=== PATIENT | female | born 1970 | race Hispanic/Latino ===

== ENCOUNTER 2018-03-29 16:02 | Emergency (ER) | payer OTHER ==
[2018-03-29 16:36] LABS: BASOPHILS % (AUTO) 0.5 % (0.0-5.0); EOSINOPHILS % (AUTO) 0.2 % (0.0-8.0); HEMATOCRIT 30.8 % (36-48); LYMPHOCYTES % (AUTO) 24.8 % (21.0-51.0); MEAN CORPUSCULAR HGB CONC 33.3 g/dL (32.0-36.0); MEAN CORPUSCULAR VOLUME 77.9 fL (79-99); MONOCYTES % (AUTO) 5.7 % (3.0-13.0); NEUTROPHILS % (AUTO) 68.8 % (40.0-77.0); PLATELET COUNT (AUTO) 288 K/uL (130-400); RED BLOOD CELL COUNT(AUTO) 3.95 MIL/uL (4.00-5.50); RED CELL DISTRIBUTION WIDTH 14.4 % (11.0-15.5); WHITE BLOOD COUNT (AUTO) 10.7 K/uL (4.8-10.8)
[2018-03-29 16:43] LABS: CREATININE 0.7 mg/dL (0.5-1.5); POTASSIUM 3.5 mmol/L (3.5-5.1)
[2018-03-29 16:50] LABS: ALBUMIN 3.4 g/dL (3.5-5.0); BILIRUBIN,TOTAL 0.2 mg/dL (0.2-1.0); TOTAL PROTEIN, SERUM 7.1 g/dL (6.0-8.3)
[2018-03-29 16:54] LABS: APPEARANCE,URINE Cloudy (CLEAR); BILIRUBIN,URINE Negative (NEGATIVE); COLOR,URINE Yellow (YELLOW); GLUCOSE, URINE (UA) Negative (NEGATIVE); KETONES,URINE Trace mg/dL (NEGATIVE); LEUKOCYTE ESTERASE ,URINE Moderate (NEGATIVE); NITRATE,URINE Negative (NEGATIVE); OCCULT BLOOD,URINE Large (NEGATIVE); PROTEIN,URINE POS 1+ (NEGATIVE)
[2018-03-29] MEDS ORDERED: KETOROLAC TROMETHAMINE 30MG/ML ONE (16:54)
[2018-03-29 17:05] LABS: BACTERIA,URINE Few /HPF (None Seen); MUCUS,URINE Moderate LPF (None Seen); TRANSITIONAL EPI CELLS,URINE Moderate /HPF (None Seen)
[2018-03-29] MEDS ORDERED: ONDANSETRON HCL MDV 20ML 2 MG/ML VIAL ONE (17:43)
[2018-03-29] MEDS ORDERED: MORPHINE SULFATE 4 MG/1ML SYG ONE (17:43)
[2018-03-29] MEDS ORDERED: BISACODYL 5 MG TABLET.DR PO ONE (18:50)
[2018-03-29] MEDS ORDERED: MAGNESIUM CITRATE 296 ML SOLUTION ONE (18:50)
[2018-03-29] MEDS ORDERED: BISACODYL 10 MG SUPP.RECT RC ONE (18:52)
== END 2018-03-29 20:36 | disposition home or self-care (01) ==
LOC: EDH 16:02
DX: R10.9 Unspecified abdominal pain (principal); M54.9 Dorsalgia, unspecified; Z88.0 Allergy status to penicillin; Z87.442 Personal history of urinary calculi
CPT/HCPCS: 36415; 71045; 74018; 76700; 80053; 81001; 83690; 84484 ×2; 85025; 93005; 96374; 96375; 99285; J1885; J2270

== ENCOUNTER 2018-09-25 18:40 | Emergency (ER) | payer OTHER ==
[2018-09-25] MEDS ORDERED: DIAZEPAM 5 MG TABLET ONE (19:30)
[2018-09-25] MEDS ORDERED: KETOROLAC TROMETHAMINE 60 MG/2 ML VIAL ONE (19:30)
== END 2018-09-25 20:42 | disposition home or self-care (01) ==
LOC: EDH 18:40
DX: M54.5 Low back pain (principal); Z88.0 Allergy status to penicillin; Z87.442 Personal history of urinary calculi
CPT/HCPCS: 96372; 99283; J1885

== ENCOUNTER 2019-03-21 19:29 | Emergency (ER) | payer OTHER ==
[2019-03-21] MEDS ORDERED: FAMOTIDINE/PF 20 MG/2 ML VIAL IV ONE (20:13)
[2019-03-21] MEDS ORDERED: DICYCLOMINE HCL 10 MG/ML 2ML AMP IM ONE (20:13)
[2019-03-21] MEDS ORDERED: ONDANSETRON HCL 4 MG/2 ML VIAL ONE (20:13)
[2019-03-21 20:34] LABS: CREATININE 0.6 mg/dL (0.5-1.5); POTASSIUM 3.8 mmol/L (3.5-5.1)
[2019-03-21 20:41] LABS: ALBUMIN 3.3 g/dL (3.5-5.0); BILIRUBIN,TOTAL 0.2 mg/dL (0.2-1.0); TOTAL PROTEIN, SERUM 7.1 g/dL (6.0-8.3)
[2019-03-21 20:43] LABS: BASOPHILS % (AUTO) 0.3 % (0.0-5.0); EOSINOPHILS % (AUTO) 0.2 % (0.0-8.0); HEMATOCRIT 27.2 % (36-48); LYMPHOCYTES % (AUTO) 32.6 % (21.0-51.0); MEAN CORPUSCULAR HEMOGLOBIN 19.3 pg (27.0-33.0); MEAN CORPUSCULAR HGB CONC 30.2 g/dL (32.0-36.0); MONOCYTES % (AUTO) 5.4 % (3.0-13.0); NEUTROPHILS % (AUTO) 61.5 % (40.0-77.0); PLATELET COUNT (AUTO) 368 K/uL (130-400); RED BLOOD CELL COUNT(AUTO) 4.25 MIL/uL (4.00-5.50); RED CELL DISTRIBUTION WIDTH 18.7 % (11.0-15.5); WHITE BLOOD COUNT (AUTO) 7.8 K/uL (4.8-10.8)
== END 2019-03-21 21:02 | disposition home or self-care (01) ==
LOC: EDH 19:29
DX: R10.13 Epigastric pain (principal); R19.7 Diarrhea, unspecified; R11.2 Nausea with vomiting, unspecified; Z88.0 Allergy status to penicillin; Z87.442 Personal history of urinary calculi
CPT/HCPCS: 36415; 80053; 83690; 85025; 96365; 96372; 96375; 99284; J0500; J2405; J3490

== ENCOUNTER 2019-12-18 11:56 | Emergency (ER) | payer OTHER ==
[2019-12-18 12:20] LABS: APPEARANCE,URINE Cloudy (CLEAR); BILIRUBIN,URINE Negative (NEGATIVE); COLOR,URINE Dark Yellow (YELLOW); GLUCOSE, URINE (UA) Negative (NEGATIVE); KETONES,URINE Negative (NEGATIVE); LEUKOCYTE ESTERASE ,URINE Negative (NEGATIVE); NITRATE,URINE Negative (NEGATIVE); OCCULT BLOOD,URINE Negative (NEGATIVE); PH,URINE 5.5 (5.0-8.0); PROTEIN,URINE Trace mg/dL (NEGATIVE)
[2019-12-18 12:36] LABS: BACTERIA,URINE Rare /HPF (None Seen); MUCUS,URINE Moderate LPF (None Seen); RBC,URINE None Seen /HPF (0-1); WBC,URINE None Seen /HPF (0-1)
[2019-12-18] MEDS ORDERED: ONDANSETRON HCL 4 MG/2 ML VIAL ONE (12:37)
[2019-12-18] MEDS ORDERED: FENTANYL CITRATE PF 50 MCG/1 ML 2ML VIAL ONE (12:38)
[2019-12-18 12:44] LABS: BASOPHILS % (AUTO) 0.1 % (0.0-5.0); EOSINOPHILS % (AUTO) 0.1 % (0.0-8.0); HEMATOCRIT 37.2 % (36-48); LYMPHOCYTES % (AUTO) 16.8 % (21.0-51.0); MEAN CORPUSCULAR HEMOGLOBIN 20.8 pg (27.0-33.0); MEAN CORPUSCULAR VOLUME 71.5 fL (79-99); MONOCYTES % (AUTO) 4.5 % (3.0-13.0); NEUTROPHILS % (AUTO) 78.3 % (40.0-77.0); PLATELET COUNT (AUTO) 335 K/uL (130-400); RED CELL DISTRIBUTION WIDTH 16.7 % (11.0-15.5); WHITE BLOOD COUNT (AUTO) 10.1 K/uL (4.8-10.8)
[2019-12-18 13:08] LABS: AMYLASE 58 U/L (25-115); LIPASE 134 U/L (114-286)
[2019-12-18 13:12] LABS: BILIRUBIN,TOTAL 0.4 mg/dL (0.2-1.0); CREATININE 0.7 mg/dL (0.5-1.5); POTASSIUM 3.6 mmol/L (3.5-5.1); TOTAL PROTEIN, SERUM 8.6 g/dL (6.0-8.3)
[2019-12-18] MEDS ORDERED: KETOROLAC TROMETHAMINE 30MG/ML ONE (14:13)
[2019-12-18] MEDS ORDERED: SODIUM CHLORIDE 0.9% 500ML 500 ML IV ONE (14:14)
[2019-12-18] MEDS ORDERED: CEFTRIAXONE SODIUM 1 GM ONE (14:20)
== END 2019-12-18 16:50 | disposition home or self-care (01) ==
LOC: EDH 11:56
DX: R10.9 Unspecified abdominal pain (principal); Z88.0 Allergy status to penicillin
CPT/HCPCS: 36415; 71046; 76770; 80053; 81001; 81025; 82150; 83690; 85025; 96374; 96375; 99285; J0696; J1885; J2405; J3010; J7040

== ENCOUNTER 2020-03-24 15:17 | Emergency (ER) | payer OTHER ==
[2020-03-24 15:59] LABS: APPEARANCE,URINE Cloudy (CLEAR); BILIRUBIN,URINE Negative (NEGATIVE); COLOR,URINE Yellow (YELLOW); GLUCOSE, URINE (UA) Negative (NEGATIVE); KETONES,URINE Negative (NEGATIVE); LEUKOCYTE ESTERASE ,URINE Negative (NEGATIVE); NITRATE,URINE Negative (NEGATIVE); OCCULT BLOOD,URINE Negative (NEGATIVE); PH,URINE 5.5 (5.0-8.0); PROTEIN,URINE Negative (NEGATIVE)
[2020-03-24 16:19] LABS: BACTERIA,URINE Few /HPF (None Seen); SQUAMOUS EPITHELIAL CELL,UR Many /HPF (0-2)
[2020-03-24 16:56] LABS: BASOPHILS % (AUTO) 0.1 % (0.0-5.0); EOSINOPHILS % (AUTO) 0.2 % (0.0-8.0); HEMATOCRIT 31.9 % (36-48); LYMPHOCYTES % (AUTO) 19.4 % (21.0-51.0); MEAN CORPUSCULAR HEMOGLOBIN 20.9 pg (27.0-33.0); MEAN CORPUSCULAR HGB CONC 29.5 g/dL (32.0-36.0); MEAN CORPUSCULAR VOLUME 70.9 fL (79-99); MONOCYTES % (AUTO) 8.4 % (3.0-13.0); NEUTROPHILS % (AUTO) 71.7 % (40.0-77.0); PLATELET COUNT (AUTO) 257 K/uL (130-400); RED CELL DISTRIBUTION WIDTH 16.5 % (11.0-15.5)
[2020-03-24] MEDS ORDERED: CEFTRIAXONE SODIUM 2 GM VIAL ONE (17:02)
[2020-03-24] MEDS ORDERED: FAMOTIDINE/PF 20 MG/2 ML VIAL IV ONE (17:05)
[2020-03-24] MEDS ORDERED: ONDANSETRON HCL 4 MG/2 ML VIAL ONE (17:05)
[2020-03-24 17:09] LABS: CARBON DIOXIDE 27 mmol/L (21-32); CHLORIDE 102 mmol/L (101-111); CREATININE 0.7 mg/dL (0.5-1.5); GLOMERULAR FILTR. RATE CALC 95 mL/min (>60); GLUCOSE,RANDOM 96 mg/dL (70-105); INR 1.01 (0.85-1.15); PARTIAL THROMBOPLASTIN TIME 26.7 SEC (26.3-35.5); PROTHROMBIN TIME 10.9 SEC (9.6-11.6); SODIUM SERUM 136 mmol/L (136-145); UREA NITROGEN, BLOOD 8 mg/dL (7-18)
[2020-03-24 17:20] LABS: ALANINE AMINOTRANSFERASE 36 U/L (12-78); ALBUMIN 3.4 g/dL (3.5-5.0); ASPARTATE AMINOTRANSFERASE 34 U/L (10-37); BILIRUBIN,TOTAL 0.3 mg/dL (0.2-1.0); CREATINE KINASE, TOTAL 13 U/L (21-232); MYOGLOBIN 20 ng/mL (10-92); TOTAL PROTEIN, SERUM 7.2 g/dL (6.0-8.3); TROPONIN I < 0.04 ng/mL (0.00-0.06)
[2020-03-24] MEDS ORDERED: ONDANSETRON ODT 4 MG TAB ONE (18:45)
== END 2020-03-24 19:00 | disposition home or self-care (01) ==
LOC: EDH 15:17
DX: B34.9 Viral infection, unspecified (principal); R11.2 Nausea with vomiting, unspecified; R50.9 Fever, unspecified; Z88.0 Allergy status to penicillin; Z91.041 Radiographic dye allergy status
CPT/HCPCS: 36415; 71045; 80053; 81001; 82550; 83605; 83690; 83874; 84145; 84484; 85025; 85610; 85730; 87040 ×2; 87088; 87804 ×2; 93005; 96374; 96375; 99285; J0696; J2405; J3490

== ENCOUNTER → 2020-07-17 | Outpatient (CLI) | payer OTHER | END | disposition home or self-care (01) | LOC: RAH 08:48 | PROVIDERS: ATTEND Obstetrics & Gynecology | DX: Z12.31 Encounter for screening mammogram for malignant neoplasm of breast (principal) | CPT/HCPCS: 77067 ==

== ENCOUNTER 2022-05-20 17:47 | Emergency (ER) | payer BC, OTHER ==
[~2022-05-20] VITALS: Ht 162.6 cm; Wt 93.0 kg
[2022-05-20] MEDS ORDERED: DiphenhydrAMINE HCL 50 MG/ML VIAL IV ONE (18:00)
[2022-05-20] MEDS ORDERED: FAMOTIDINE 20MG VIAL IV ONE (18:00)
[2022-05-20] MEDS ORDERED: SOLU-MEDROL 125MG VIAL IVP ONE (18:00)
[2022-05-20] MEDS ORDERED: FAMO-136 PO (18:49)
[2022-05-20] MEDS ORDERED: CETI1SOL17 PO (18:49)
[2022-05-20] MEDS ORDERED: PRED20TA3 PO (18:49)
[2022-05-20 19:00] VITALS: BP 133/79
== END 2022-05-20 19:11 | disposition home or self-care (01) ==
LOC: EDH 17:47
DX: L50.9 Urticaria, unspecified (principal); E11.9 Type 2 diabetes mellitus without complications; G43.909 Migraine, unspecified, not intractable, without status migrainosus; E66.9 Obesity, unspecified; Z68.35 Body mass index [BMI] 35.0-35.9, adult; Z88.8 Allergy status to other drugs, medicaments and biological substances; Z88.0 Allergy status to penicillin; Z87.442 Personal history of urinary calculi
CPT/HCPCS: 99284; 96374; 96375; 82948; J1200; J3490; J2930

== ENCOUNTER 2024-10-10 15:27 | Inpatient (IN) | payer BC ==
[~2024-10-10] VITALS: Ht 162.6 cm; Wt 88.0 kg
[~2024-10-10 15:27] MED LIST: CETI1SOL17 PO; FAMO-136 PO; PRED20TA3 PO
[2024-10-10 15:56] LABS: BASOPHILS # (AUTO) 0.02 K/uL (0.00-0.20); BASOPHILS % (AUTO) 0.2 % (0.0-5.0); EOSINOPHILS # (AUTO) 0.03 K/uL (0.00-0.70); EOSINOPHILS % (AUTO) 0.2 % (0.0-8.0); HEMATOCRIT 48.1 % (36-48); IMMATURE GRANULOCYTE ABSOLUTE 0.04 K/uL (0-1); LYMPHOCYTES # (AUTO) 1.4 K/uL (1.0-4.8); LYMPHOCYTES % (AUTO) 10.8 % (21.0-51.0); MEAN CORPUSCULAR HEMOGLOBIN 30.3 pg (27.0-33.0); MEAN CORPUSCULAR HGB CONC 33.7 g/dL (32.0-36.0); MEAN CORPUSCULAR VOLUME 90.1 fL (79-99); MONOCYTES # (AUTO) 0.7 K/uL (0.1-1.0); MONOCYTES % (AUTO) 5.4 % (3.0-13.0); NEUTROPHILS # (AUTO) 10.8 K/uL (1.8-7.7); NEUTROPHILS % (AUTO) 83.1 % (40.0-77.0); PLATELET COUNT (AUTO) 270 K/uL (130-400); RED BLOOD CELL COUNT(AUTO) 5.34 MIL/uL (4.00-5.50); RED CELL DISTRIBUTION WIDTH 13.5 % (11.0-15.5)
[2024-10-10 16:06] LABS: INR 0.98 (0.85-1.15)
[2024-10-10 16:08] LABS: PARTIAL THROMBOPLASTIN TIME 31.8 SEC (26.3-35.5)
[2024-10-10 16:20] LABS: ALBUMIN 3.8 g/dL (3.5-5.0); BILIRUBIN,DIRECT 0.2 mg/dL (0.0-0.3); CREATININE 0.8 mg/dL (0.5-1.0); POTASSIUM 3.9 mmol/L (3.5-5.1); TOTAL PROTEIN, SERUM 7.8 g/dL (6.0-8.3)
--- NOTE | 2024-10-10 16:28 | HMCIMG ---
Exam Type: CT ABDOMEN/PELVIS W/O CONTRAST Clinical Information: Abdominal pain Comparison: None CT Dose Index (CTDI): 10.20 mGy Dose Length Product (DLP): 530.00 total mGy-cm PROTOCOL: Routine noncontrast helical scanning of the abdomen and pelvis was performed at 5mm collimation. Findings: No evidence of nephro or ureterolithiasis is found. No hydronephrosis or ureteral dilatation is seen. The lung bases are clear. The stomach is unremarkable. It shows no wall thickening. No gross ulceration is seen. It is not overly distended. There are no surrounding inflammatory changes. No wall lesions are identified to suggest cancer. The spleen is unremarkable. It is not enlarged. The pancreas shows normal anatomy. It is not fatty replaced. It shows no lesions. The pancreatic duct is not dilated. The gallbladder is unremarkable. It shows no cholelithiasis. The gallbladder wall is normal in thickness. There is no pericholecystic fluid. The is no acute or chronic inflammation noted. The adrenal glands are unremarkable. There is no enlargement. No lesions are noted. The liver is unremarkable. It shows no focal masses. The appendix is unremarkable. It shows no evidence of inflammation. No appendicolith is seen. Dilatation of the jejunum with small caliber of the ileum and these findings are consistent with jejunoileal level obstruction. The colon is unremarkable. The urinary bladder is unremarkable. There is no wall thickening to suggest tumor or inflammation. There are no intraluminal calculi. There are no diverticula. There is no evidence of chronic bladder outlet obstruction. There is no evidence of urinary bladder distention to suggest urinary retention. The other pelvic structures are unremarkable. The bony and vascular structures are unremarkable for the patient's age. IMPRESSION: Small bowel obstruction. This study was performed using dose reduction techniques to include automated exposure control and/or adjustment of the mA and/or kV according to patient size.
[2024-10-10] MEDS: ondanSETRON 4MG INJ IVP ONE (16:59)
[2024-10-10] MEDS: morPHINE 2 MG SYG IVP ONE (16:59)
[2024-10-10] MEDS: FAMOTIDINE 20MG VIAL IV ONE (16:59)
--- NOTE | 2024-10-10 17:07 | EKG ---
[facility] [place] Test Date: 2024-10-10 Test Time: 17:00:47 Pat Name: EVA BUENROSTRO Department: ED Room: 413 Gender: F Adolescent Counselor: [id number] : 1970 Requested By: MOR LOWERY Order Number: [id number] Reading MD: Dayne Petersen Measurements Intervals [place] Rate: 124 P: 31 SC: 140 QRS: 29 QRSD: 73 T: 43 QT: 334 QTc: 480 Interpretive Statements Sinus tachycardia Compared to ECG 03/24/2020 15:56:00 No significant changes Electronically Signed On 10-11-2024 21:12:48 [employer] by Dayne Petersen Please click the below link to view image of tracing.
--- NOTE | 2024-10-10 18:00 | ERN ---
General Chief Complaint: Abdominal Pain Stated Complaint: ABDOMINAL PAIN Time Seen by MD: 15:29 History of Present Illness Initial Comments 54-year-old female came in for nausea and vomiting abdominal pain for the past couple of days. Patient says that her belly feels distended. Patient otherwise has no concerns. Allergies: Coded Allergies: Iodine and Iodide Containing Produc (Unverified Allergy, Unknown, 03/24/20) Penicillins (Unverified Allergy, Unknown, 03/21/19) Home Meds Active Scripts Cetirizine HCl (Zyrtec Syrup 1 mg/1 ml) 1 Mg/1 Ml Solution, 10 MG PO BID for 5 Days, #120 ML Prov:VARUN CONN 05/20/22 Famotidine (Pepcid) 20 Mg Tablet, 20 MG PO BID for 15 Days, #30 TAB Prov:VARUN CONN 05/20/22 Prednisone (Prednisone) 20 Mg Tablet, 2 TAB PO AD for 5 Days, #10 TAB 0 Refills TAKE 1 TAB BY MOUTH THREE TIMES PER DAY X3 DAYS, THEN TAKE 1 TAB BY MOUTH TWICE A DAY X2 DAYS, THEN TAKE 1 TAB BY MOUTH ONCE A DAY X1 DAY. Prov:VARUN CONN 05/20/22 Past Medical History Past Medical History: No Pertinent History Medical History Other: Obesity Past Surgical History: None Family History Family History: Negative Social History Social History: Negative ROS Dictation CONSTITUTIONAL: Negative except for HPI HEAD/FACE: Negative except for HPI EENT: Negative except for HPI RESPIRATORY: Negative except for HPI GASTROINTESTINAL/ABDOMINAL: Negative except for HPI GENITOURINARY: Negative except for HPI MUSCULOSKELETAL: Negative except for HPI INTEGUMENTARY: Negative except for HPI NEUROLOGICAL/PSYCH: Negative except for HPI HEMATOLOGIC/LYMPHATIC: Negative except for HPI All Systems Negative, Except as noted above. 13 point review of systems assessed and all negative except for above. Physical Exam Physical Exam Dictation Vital Signs reviewed General Appearance: Alert, oriented x 3, no acute distress, well developed, nourished. Head and Face: non-traumatic. Eyes: PERRL, pink conjunctivas, eyelid no trauma, anterior chamber with arcus senilis. Ears: Pinnas intact and no signs of trauma or erythema ear canals clear and no discharge TM no erythema Nose: No discharge, no bleeding. Oropharynx: Mouth normal, tongue pink, pharynx clear,no erythema, tonsils no exudates, no abscesses noted, mucous membrane moist Neck: Supple, non-tender, no thyromegaly, no masses, no JVD, no bruits Breast:Deferred Chest:No tenderness, no crepitus, no paradoxical movement, no retractions Lungs:Clear, well-ventilated, symmetric, no rales, no wheezing, no rhonchi, no stridor, good breath sounds bilaterally Heart: Regular rate, regular rhythm, no murmur, no gallops Vascular: no peripheral edema, Abdomen: Soft, positive bowel sounds, nondistended, no guarding, nontender, no rebound, no masses no hepatomegaly, no splenomegaly, no Turpin's sign, no hernias. Rectal: Deferred Genital: Deferred Neurological: Normal speech, motor function intact, sensory function intact Musculoskeletal: Neck nontender, full range of motion, back nontender, full range of motion, Extremities: nontender, full range of motion Skin: Color pink, dry, no turgor, no rash, no lacerations, no abrasions, no contusions. Lymphatic: Deferred Results Laboratory and Microbiology Lab and Micro Result Laboratory Tests Test 10/10/24 15:50 White Blood Count 13.0 K/uL (4.8-10.8) H Red Blood Count 5.34 MIL/uL (4.00-5.50) Hemoglobin 16.2 g/dL (12.0-16.0) H Hematocrit 48.1 % (36-48) H Mean Corpuscular Volume 90.1 fL (79-99) Mean Corpuscular Hemoglobin 30.3 pg (27.0-33.0) Mean Corpuscular Hemoglobin Concent 33.7 g/dL (32.0-36.0) Red Cell Distribution Width 13.5 % (11.0-15.5) Platelet Count 270 K/uL (130-400) Mean Platelet Volume 10.0 fL (7.5-10.5) Immature Granulocyte % (Auto) 0.3 % (0-1) Neutrophils (%) (Auto) 83.1 % (40.0-77.0) H Lymphocytes (%) (Auto) 10.8 % (21.0-51.0) L Monocytes (%) (Auto) 5.4 % (3.0-13.0) Eosinophils (%) (Auto) 0.2 % (0.0-8.0) Basophils (%) (Auto) 0.2 % (0.0-5.0) Neutrophils # (Auto) 10.8 K/uL (1.8-7.7) H Lymphocytes # (Auto) 1.4 K/uL (1.0-4.8) Monocytes # (Auto) 0.7 K/uL (0.1-1.0) Eosinophils # (Auto) 0.03 K/uL (0.00-0.70) Basophils # (Auto) 0.02 K/uL (0.00-0.20) Absolute Immature Granulocyte (auto 0.04 K/uL (0-1) Nucleated Red Blood Cells 0.0 % (0.0-0.19) Prothrombin Time 11.0 SEC (9.6-11.6) Prothromb Time International Ratio 0.98 (0.85-1.15) Activated Partial Thromboplast Time 31.8 SEC (26.3-35.5) Sodium Level 144 mmol/L (136-145) Potassium Level 3.9 mmol/L (3.5-5.1) Chloride Level 106 mmol/L (101-111) Carbon Dioxide Level 31 mmol/L (21-32) Blood Urea Nitrogen 15 mg/dL (7-18) Creatinine 0.8 mg/dL (0.5-1.0) Glomerular Filtration Rate Calc 88 mL/min (>90) Random Glucose 109 mg/dL (70-105) H Lactic Acid Level 1.3 mmol/L (0.8-2.5) Total Calcium 9.1 mg/dL (8.5-10.1) Total Bilirubin 1.0 mg/dL (0.2-1.0) Direct Bilirubin 0.2 mg/dL (0.0-0.3) Aspartate Amino Transf (AST/SGOT) 28 U/L (10-37) Alanine Aminotransferase (ALT/SGPT) 36 U/L (12-78) Alkaline Phosphatase 145 U/L (50-136) H Troponin I High Sensitivity < 4 ng/L (4-50) L Total Protein 7.8 g/dL (6.0-8.3) Albumin 3.8 g/dL (3.5-5.0) Lipase 27 U/L (16-77) Procalcitonin < 0.05 ng/mL (0.05-0.5) L MDM MDM: Differential diagnosis: Rationale: Tests considered and ordered secondary to shared decision making include: Previous outside records reviewed: Old ER visits. Risk of complication and/or morbidity or mortality of patient management: None Medications-Per medication reconciliation Need for hospitalization: Patient does meet criteria for hospitalization. Need for emergency major/minor surgery: No There are no social concerns with this patient. Prescription drug management Prescriptions will include symptomatic care Patient's prior external medical records from other ER visits were reviewed by me as indicated. Prior testing and results from previous visits were reviewed. Prior tests were taken into account with medical decision making and resource utilization, independent historian/historians were used to obtain complete medical history. I independently interpreted the test that were performed, results were reviewed by me and considered findings on radiology if ordered. Medical management and examination interpretation discussions were had by me with other qualified healthcare professionals as indicated for the patient's care. ED Course Orders Procedure Category Date Status Time 12 Lead Ekg Tracing- EKG 10/10/24 Complete Technical 15:37 Cbc With Differential LAB 10/10/24 Complete 15:37 Basic Metabolic Panel LAB 10/10/24 Complete 15:37 Hepatic Function Panel LAB 10/10/24 Complete 15:37 Lactic Acid LAB 10/10/24 Complete 15:37 Lipase LAB 10/10/24 Complete 15:37 Procalcitonin LAB 10/10/24 Complete 15:37 Pt And Ptt LAB 10/10/24 Complete 15:37 Troponin I High LAB 10/10/24 Complete Sensitivity 15:37 Urinalysis LAB 10/10/24 Logged W/Microscopic 15:37 Ct Abdomen/Pelvis W/O CT 10/10/24 Resulted Contrast 15:37 Morphine 2mg Syg PHA 10/10/24 Complete (Morphine 2mg Syg) 16:00 Famotidine 20mg Vial PHA 10/10/24 Complete (Pepcid 20mg Vial) 16:00 Ondansetron 4mg Inj PHA 10/10/24 Complete (Zofran 4mg Inj) 16:00 Current Medications Medications (Trade) Dose Ordered Sig/Wendy Route PRN Reason Start Time Stop Time Status Last Admin Dose Admin Famotidine (Pepcid 20mg Vial) 20 mg ONCE ONCE IV 10/10/24 16:00 10/10/24 16:01 DC 10/10/24 16:59 Morphine Sulfate (morPHINE 2MG SYG) 2 mg ONCE ONCE IVP 10/10/24 16:00 10/10/24 16:01 DC 10/10/24 16:59 Ondansetron HCl (zoFRAN 4MG INJ) 4 mg ONCE ONCE IVP 10/10/24 16:00 10/10/24 16:01 DC 10/10/24 16:59 Vital Signs Date Time Temp Pulse Resp B/P (MAP) Pulse Ox O2 Delivery O2 Flow Rate FiO2 10/10/24 18:05 98.2 105 16 132/74 99 Room Air* 0 10/10/24 17:00 98.2 117 16 135/92 98 Room Air* 0 10/10/24 15:35 98.6 107 18 144/99 97 Room Air* 0 10/10/24 15:32 98.6 107 18 144/99 97 0 DX & DISP Disposition: Inpatient Departure Impression: Primary Impression: Small bowel obstruction Condition: Stable Referrals: SUSANNE DEL ROSARIO (PCP) MOR LOWERY MD Oct 10, 2024 18:00
--- NOTE | 2024-10-10 18:13 | HP ---
History of Present Illness Reason for Visit: nv History of Present Illness Ms. Holcomb is a 54-year-old female that was seen and examined today on 10/10/2024. Patient's mother Charlee Holcomb is at bedside. Patient states that she came to the emergency department with a chief complaint of abdominal pain. Onset was 10/09/2024 at 4:00 p.m.. Location is epigastric. Duration is constant. There was no alleviating factors. Symptoms are aggravated with eating and drinking. Patient reports associated nausea and vomiting x5 episodes. Today in the emergency department WBCs 13.0, left shift neutrophils 83.1%, chemistry unremarkable, no urinalysis has been collected or sent to lab. CT of abdomen and pelvis shows small bowel obstruction. Emergency room physician recommended patient be admitted with a diagnosis of small-bowel obstruction. Past Medical History ADDITIONAL PAST MEDICAL HISTORY: [Denies] SOCIAL HISTORY: [Negative for smoking, alcohol use, drug use. Patient lives with the mother Charlee Wallace. Patient is typically independent of all her ADLs. 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 Patient has good access to health care through her insurance. Patient denies difficulty paying her bills.] SURGICAL HISTORY: [Denies] Review of Systems General: No Fever, No Chills, No Night Sweats, No Fatigue, No Malaise, No Appetite, No Other HEENT: No Head Aches, No Visual Changes, No Eye Pain, No Ear Pain, No Dysphasia, No Sinus Congestion, No Post Nasal Drip, No Sore Throat, No Other Pulmonary: No Dyspnea, No Cough, No Pleuritic Chest Pain, No Other Cardiovascular: No: Chest Pain, Palpitations, Orthopnea, Paroxysmal Noc. Dyspnea, Edema, Lt Headedness, Other Gastrointestinal: Nausea, Vomiting, Abdominal Pain; No: Diarrhea, Constipation, Melena, Hematochezia, Other Genitourinary: No Dysuria, No Frequency, No Incontinence, No Hematuria, No Retention, No Other Musculoskeletal: No: other, neck pain, shoulder pain, arm pain, back pain, hand pain, leg pain, foot pain Skin: No Urticaria, No Rash, No Other Neurological: No: Weakness, Numbness, Incoordination, Change in speech, Confusion, Seizures, Other Allergies: Coded Allergies: Iodine and Iodide Containing Produc (Unverified Allergy, Unknown, 03/24/20) Penicillins (Unverified Allergy, Unknown, 03/21/19) Discontinued Medications Cetirizine HCl (Zyrtec Syrup 1 mg/1 ml), 10 MG PO BID Famotidine (Pepcid), 20 MG PO BID Prednisone (Prednisone), 2 TAB PO AD Exam Vital Signs Vital Signs Date Time Temp Pulse Resp B/P (MAP) Pulse Ox O2 Delivery O2 Flow Rate FiO2 10/10/24 18:05 98.2 105 16 132/74 99 Room Air* 0 21 General Appearance: Alert, Oriented X3, Cooperative, No acute distress HEENT: Atraumatic, EOMI, Mucous membr. moist/pink Respiratory: Clear to auscultation, Normal air movement, NL respiratory effort Cardiovascular: Regular rate, Regular rhythm, Normal S1, Normal S2 Abdominal: Normal bowel sounds, Soft Extremities: No edema Skin: No significant lesion Neuro: Normal speech, Strength at 5/5 X4 ext, Sensation intact, Cranial nerves 3-12 NL Psych/Mental Status: Mental status NL, Mood NL, Thoughts/Content NL Assessment/Plan ASSESSMENT: [ Small-bowel obstruction, POA, by CT on 10/10/2024 Leukocytosis, POA] PLAN: [ Admit patient to medical surgical floor as inpatient status. Patient will be followed by General surgery Service, Dr. Xiao Keep patient NPO IV fluid maintenance therapy lactated Ringer's at 75 mL/HR Check preprocedure labs, CBC, BMP, magnesium, phosphorus, PTT, UA, type and screen, EKG, CXR As needed analgesia with morphine Reviewed patient's lactic acid level which was unremarkable Reviewed patient's procalcitonin which was unremarkable Check blood culture, follow up with the results GI prophylaxis, famotidine 20 mg IV once daily. DVT prophylaxis, Mikie's and SCDs avoid anticoagulation at this time due to impending surgical evaluation. ADVANCED CARE PLANNING 1. Which of the following were discussed? Hospice Care - Yes Therapeutic options - Yes Advance Directives - Yes- patient states she does not have any advance directives in place at this time, however her mother can make decisions for her if she becomes unable. Other discussions - patient wishes to remain a full code at this time 2. Discussed with who? Patient 3. Voluntary nature of this service was explained to the patient? Yes 4. Amount of time spent - 16 minutes _ 5. Reviewed by Physician? (if this service was performed by NPP) Yes This document was generated in part using voice recognition software, occasional wrong word or sound alike substitutions may have occurred due to the inherent limitations of voice recognition software. Read the chart carefully and recognize using context, where the substitutions have occurred. Although every effort was made to edit the content, soa integration developer and typing errors may occur ATTESTATION BY PHYSICIAN I have seen and examined the patient. I reviewed the documentation, medical decision making, and treatment plan as noted by the mid-level provider above. I agree with the findings and plan of care. AYESHA WHITING [facility] Oct 10, 2024 18:13
[2024-10-10] MEDS: 0.9%NACL 1000ML 1,000 ML IV ONE (18:30)
[2024-10-10] MEDS ORDERED: hydrALAZine 20MG/ML VIAL IV PRN (18:30)
[2024-10-10] MEDS ORDERED: acetaMINOPHEN 650 MG SUPPOSITORY RC PRN (18:30)
[2024-10-10 18:45] VITALS: BP 126/62; PULSE 118; RESP 18; TEMP 98.1
--- NOTE | 2024-10-10 19:00 | HMCIMG ---
Exam Type: CHEST 1VW Clinical Information: pre procedural Comparison: None Findings: The lungs are clear of infiltrates. The heart is normal in size. The bony and soft tissue structures of the chest are unremarkable. Impression: Clear lungs.
[2024-10-10 19:45] VITALS: BP 139/80; PULSE 101; RESP 18; TEMP 98.1
[2024-10-10 20:00] VITALS: O2SAT 96
[2024-10-10] MEDS: metRONIDazole 500MG/100ML BAG IV ONE (21:00)
[2024-10-10] MEDS: morPHINE 4 MG SYG IVP PRN (21:01)
[2024-10-10] MEDS: LACTATED RINGERS 1000ML 1,000 ML IV SCH (21:03)
[2024-10-10] MEDS: ondanSETRON 4MG INJ IV PRN (23:07)
[2024-10-10 23:37] VITALS: BP 144/84; PULSE 106; RESP 18; TEMP 98.5
[2024-10-11] VITALS (8 sets, daily range): BP systolic 146–154; BP diastolic 87–95; PULSE 97–118; RESP 18–19; TEMP 98.2–98.7; O2SAT 96
[2024-10-11 04:30] LABS: BASOPHILS # (AUTO) 0.01 K/uL (0.00-0.20); BASOPHILS % (AUTO) 0.1 % (0.0-5.0); IMMATURE GRANULOCYTE ABSOLUTE 0.03 K/uL (0-1); LYMPHOCYTES # (AUTO) 1.1 K/uL (1.0-4.8); LYMPHOCYTES % (AUTO) 11.2 % (21.0-51.0); MEAN CORPUSCULAR HEMOGLOBIN 30.1 pg (27.0-33.0); MEAN CORPUSCULAR HGB CONC 33.7 g/dL (32.0-36.0); MEAN CORPUSCULAR VOLUME 89.2 fL (79-99); MONOCYTES # (AUTO) 0.5 K/uL (0.1-1.0); MONOCYTES % (AUTO) 5.2 % (3.0-13.0); NEUTROPHILS # (AUTO) 8.1 K/uL (1.8-7.7); NEUTROPHILS % (AUTO) 83.2 % (40.0-77.0); PLATELET COUNT (AUTO) 264 K/uL (130-400); RED BLOOD CELL COUNT(AUTO) 4.82 MIL/uL (4.00-5.50); RED CELL DISTRIBUTION WIDTH 13.3 % (11.0-15.5); WHITE BLOOD COUNT (AUTO) 9.7 K/uL (4.8-10.8)
[2024-10-11 04:49] LABS: CREATININE 0.7 mg/dL (0.5-1.0); MAGNESIUM 1.9 mg/dL (1.80-2.40); PHOSPHORUS 3.7 mg/dL (2.5-4.9); POTASSIUM 3.9 mmol/L (3.5-5.1)
[2024-10-11] MEDS: morPHINE 2 MG SYG IVP PRN (09:42)
[2024-10-11] MEDS: FAMOTIDINE 20MG VIAL IV SCH (09:47)
[2024-10-11] MEDS: ketOROlac 15MG/ML VIAL (15MG/ML) IV PRN (13:45)
--- NOTE | 2024-10-11 14:09 | PN ---
[facility] PROGRESS NOTE Date of Service: Oct 11, 2024 Time of Service: 14:05 SUBJECTIVE: [56-year-old female admitted for small-bowel obstruction noted on CT abdomen and pelvis. She continues to have intractable vomiting. We will order KUB, and request for general surgeon. Patient will be kept NPO. Continue with IV fluids.] REVIEW OF SYSTEMS CONSTITUTIONAL: Denies fevers, chills, or night sweats. No unintentional weight loss reported. NEUROLOGICAL: Denies headache, amaurosis fugax, motor weakness, sensory deficit, vertigo/spinning sensation, gait abnormalities, or tremors. ENT: No hearing loss, otalgia, otorrhea, rhinitis, rhinorrhea, hoarseness, or sore throat. CARDIOVASCULAR: Denies any exertional angina, dyspnea on exertion, orthopnea, paroxysmal nocturnal dyspnea, palpitations, life-threatening arrhythmias, claudication. PULMONARY: Denies any shortness of breath, cough, phlegm/sputum, hemoptysis, pleuritic chest pain. SLEEP: Denies morning headaches, daytime somnolence or napping. Denies difficulty falling asleep, staying asleep, waking from sleep. Denies knowledge of snoring. GASTROINTESTINAL: Denies any type of dysphagia to either liquids or solids. Denies nausea, vomiting, pyrosis, early satiety, abdominal pain, diarrhea, constipation, or changes in stool consistency or caliber. Denies coffee-ground emesis, hematemesis, hematochezia, or melanotic stools. GENITOURINARY: Denies frequency, urgency, nocturia, hematuria or incontinence (Storage/Irritative symptoms.) Low urinary stream, straining to void, urinary intermittency or hesitancy, splitting of the voiding stream, terminal dribbling. ENDOCRINOLOGIC: Denies polyuria, polydipsia, polyphagia or heat/cold intolerances. HEMATOLOGIC: Denies thrombophilia/previous clots, or coagulopathy/bleeding disorders. ONCOLOGIC: Denies personal history of malignancy. DERMATOLOGIC: Denies rashes or pruritus. PSYCHIATRIC: Denies any suicidal or homicidal ideation. Denies hallucinations. PHYSICAL EXAM GENERAL APPEARANCE: The patient is awake, alert, and oriented, in no acute cardiopulmonary distress. NEUROLOGICAL: Cranial nerves II-XII grossly intact. Motor is 5/5 in bilateral upper and lower extremities proximal to distal. No sensory deficits. HEENT: Face is symmetric. Pupils are equal and reactive. Extraocular movements are intact. NECK: Supple. No JVD. No thyromegaly. No submental, submandibular, pre-/postauricular, occipital or supraclavicular lymphadenopathy. CHEST: Normal chest expansion. No Telemetry. LUNGS: Absence of any rales, rhonchi or any wheezing. CARDIOVASCULAR: Regular. S1 and S2 normal. No appreciable rubs, murmurs or gallops. ABDOMEN: Soft, nontender, and nondistended. There is no rebound, voluntary guarding, or rigidity. : Deferred. No Powers. EXTREMITIES: Non-edematous and not cyanotic. No clubbing. Good capillary refill. SKIN: No skin breakdown. Vital Signs (last 8hr) Date Time Temp Pulse Resp B/P (MAP) Pulse Ox O2 Delivery O2 Flow Rate FiO2 10/11/24 11:20 98.2 97 18 149/95 100 Room Air 21 10/11/24 08:30 96 Room Air* 0 21 10/11/24 07:20 98.2 100 18 149/87 95 Room Air 21 LABS: Laboratory: Test 10/11/24 03:50 10/10/24 15:50 Range/Units White Blood Count 9.7 # 4.8-10.8 K/uL Red Blood Count 4.82 4.00-5.50 MIL/uL Hemoglobin 14.5 12.0-16.0 g/dL Hematocrit 43.0 36-48 % Mean Corpuscular Volume 89.2 79-99 fL Mean Corpuscular Hemoglobin 30.1 27.0-33.0 pg Mean Corpuscular Hemoglobin Concent 33.7 32.0-36.0 g/dL Red Cell Distribution Width 13.3 11.0-15.5 % Platelet Count 264 130-400 K/uL Mean Platelet Volume 10.3 7.5-10.5 fL Immature Granulocyte % (Auto) 0.3 0-1 % Neutrophils (%) (Auto) 83.2 H 40.0-77.0 % Lymphocytes (%) (Auto) 11.2 L 21.0-51.0 % Monocytes (%) (Auto) 5.2 3.0-13.0 % Eosinophils (%) (Auto) 0.0 0.0-8.0 % Basophils (%) (Auto) 0.1 0.0-5.0 % Neutrophils # (Auto) 8.1 H 1.8-7.7 K/uL Lymphocytes # (Auto) 1.1 1.0-4.8 K/uL Monocytes # (Auto) 0.5 0.1-1.0 K/uL Eosinophils # (Auto) 0.00 0.00-0.70 K/uL Basophils # (Auto) 0.01 0.00-0.20 K/uL Absolute Immature Granulocyte (auto 0.03 0-1 K/uL Nucleated Red Blood Cells 0.0 0.0-0.19 % Sodium Level 145 136-145 mmol/L Potassium Level 3.9 3.5-5.1 mmol/L Chloride Level 108 101-111 mmol/L Carbon Dioxide Level 30 21-32 mmol/L Blood Urea Nitrogen 11 7-18 mg/dL Creatinine 0.7 0.5-1.0 mg/dL Glomerular Filtration Rate Calc 103 >90 mL/min Random Glucose 114 H 70-105 mg/dL Total Calcium 8.3 L 8.5-10.1 mg/dL Phosphorus Level 3.7 2.5-4.9 mg/dL Magnesium Level 1.90 1.80-2.40 mg/dL Prothrombin Time 11.0 9.6-11.6 SEC Prothromb Time International Ratio 0.98 0.85-1.15 Activated Partial Thromboplast Time 31.8 26.3-35.5 SEC Lactic Acid Level 1.3 0.8-2.5 mmol/L Total Bilirubin 1.0 0.2-1.0 mg/dL Direct Bilirubin 0.2 0.0-0.3 mg/dL Aspartate Amino Transf (AST/SGOT) 28 10-37 U/L Alanine Aminotransferase (ALT/SGPT) 36 12-78 U/L Alkaline Phosphatase 145 H 50-136 U/L Troponin I High Sensitivity < 4 L 4-50 ng/L Total Protein 7.8 6.0-8.3 g/dL Albumin 3.8 3.5-5.0 g/dL Lipase 27 16-77 U/L Procalcitonin < 0.05 L 0.05-0.5 ng/mL Current Medications Medications (Trade) Dose Ordered Sig/Wendy Route PRN Reason Start Time Stop Time Status Last Admin Dose Admin Acetaminophen (TYLenol 650MG SUPPOSITORY) 650 mg Q6H PRN RC MILD PAIN (1-3) 10/10/24 18:30 11/09/24 18:29 Famotidine (Pepcid 20mg Vial) 20 mg DAILY IV 10/11/24 09:00 11/10/24 08:59 10/11/24 09:47 20 MG Hydralazine HCl (APRESOLine 20MG INJ) 10 mg Q6H PRN IV For:SBP above 160;DBP above 90 10/10/24 18:30 11/09/24 18:29 Ketorolac Tromethamine (toRADol) 15 mg Q6H PRN IV MODERATE PAIN (4-6) 10/11/24 13:30 10/16/24 13:29 10/11/24 13:45 15 MG Lactated Ringer's 1,000 ml @ 75 mls/hr [id number] IV 10/10/24 18:30 11/09/24 18:29 10/10/24 21:03 75 MLS/HR Morphine Sulfate (morPHINE 2MG SYG) 2 mg Q4H PRN IVP SEVERE PAIN (7-10) 10/11/24 09:30 10/17/24 18:29 10/11/24 09:42 2 MG Morphine Sulfate (morPHINE 4MG SYG) 2 mg Q4H PRN IVP SEVERE PAIN (7-10) 10/10/24 18:30 10/11/24 09:23 DC 10/11/24 02:24 2 MG Ondansetron HCl (zoFRAN 4MG INJ) 4 mg Q6H PRN IV NAUSEA/VOMITING 10/10/24 18:30 11/09/24 18:29 10/11/24 13:42 4 MG Promethazine HCl (Phenergan) 25 mg Q6H PRN IM NAUSEA/VOMITING 10/11/24 13:00 11/10/24 12:59 DIAGNOSTICS / RADIOLOGY: [ ] ASSESSMENT: [Small-bowel obstruction by CT abdomen and pelvis, POA ] Leukocytosis, with left shift, POA Elevated alkaline phosphatase, POA Hyperglycemia, POA PLAN: [Admit to medical-surgical floor Continue with NPO Continue with broad-spectrum IV antibiotics We will continue with IV fluids with LR at 75 mL/hour Continue with antiemetics, we will add [id number] mg IM q.6 hours We will remove opiates to prevent ileus We will continue to manage pain, we will start patient on [id number] mg IV q.6 hours We will order hemoglobin A1c We will continue with GI and DVT prophylaxis Repeat labs tomorrow We will request general surgeon to evaluate for small bowel obstruction Case was seen and examined with Dr. Ugalde, above plan was formulated ] ATTESTATION BY PHYSICIAN I have seen and examined the patient. I reviewed the documentation, medical decision making, and treatment plan as noted by the mid-level provider above. I agree with the findings and plan of care. IRENE UGALDE MD, JANICE B AGNP Oct 11, 2024 14:09
--- NOTE | 2024-10-11 14:51 | HMCIMG ---
ABD 1VW REASON: r/o sbo FINDINGS: Single image of the abdomen was obtained. Abdomen is nearly gasless. There are a few moderately dilated small bowel loops present superiorly. Colon appears decompressed. IMPRESSION: 1. Nonspecific bowel gas pattern. Abdomen is nearly gasless.
--- NOTE | 2024-10-11 16:38 | CONS ---
CONSULT NOTE: Consulting physician: Dr. Haque Consulting service: General surgery Reason for consultation: Small bowel obstruction History of present illness: This is a 54-year-old female in no specific medical history consulted to surgery after presenting to the hospital with episodes of nausea and vomiting x5 accompanied with the abdominal pain. Initial imaging concerning for small bowel obstruction but patient has had refused NG tube. Since admission patient has had multiple episodes of flatus. Repeat KUB unremarkable for small bowel obstruction. Patient reporting no abdominal pain. Nausea has improved. Patient otherwise stable Medical history: Surgical history: None SOCIAL HISTORY: Negative for smoking, alcohol use, drug use. Patient lives with the mother Charlee Wallace. Patient is typically independent of all her ADLs. 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 Patient has good access to health care through her insurance. Patient denies difficulty paying her bills. Review of systems: General: No Fever, No Chills, No Night Sweats, No Fatigue, No Malaise, No Appetite, No Other HEENT: No Head Aches, No Visual Changes, No Eye Pain, No Ear Pain, No Dysphasia, No Sinus Congestion, No Post Nasal Drip, No Sore Throat, No Other Pulmonary: No Dyspnea, No Cough, No Pleuritic Chest Pain, No Other Cardiovascular: No: Chest Pain, Palpitations, Orthopnea, Paroxysmal No Dyspnea, Edema, Lt Headedness, Other Gastrointestinal: No: Nausea, Vomiting, Diarrhea, Constipation, Melena, He matochezia, Other Genitourinary: No Dysuria, No Frequency, No Incontinence, No Hematuria, No Retention, No Other Musculoskeletal: No: other, neck pain, shoulder pain, arm pain, back pain, hand pain, leg pain, foot pain Skin: No Urticaria, No Rash, No Other Neurological: No: Weakness, Numbness, Incoordination, Change in speech, Confusion, Seizures, Other Physical exam: General: Awake alert and oriented Heart: Regular rate and rhythm} Lungs: Clear to auscultation no distress Abdomen: [Soft, nontender, nondistended Assessment: This is a 54-year-old female with concerns of small bowel obstruction Plan: At this point in time we will allow patient to have clear liquids Do not advance diet Continue with conservative management No surgical intervention plan Dr. Andrade to be updated in patient's status and surgical team to follow patient closely THANIA WYNN Jr. 30, 2024 16:38
[2024-10-11 20:43] LABS: ADD UA MICROSCOPIC YES; APPEARANCE,URINE TURBID (CLEAR); BILIRUBIN,URINE 0.5 mg/dL (NEGATIVE); COLOR,URINE YELLOW (YELLOW); GLUCOSE, URINE (UA) NEGATIVE (NEGATIVE); KETONES,URINE >=80 mg/dL (NEGATIVE); LEUKOCYTE ESTERASE ,URINE NEGATIVE Leu/uL (NEGATIVE); NITRATE,URINE NEGATIVE (NEGATIVE); OCCULT BLOOD,URINE NEGATIVE (NEGATIVE); PROTEIN,URINE 30 mg/dL (NEGATIVE); UROBILINOGEN,URINE 0.2 mg/dL (0.2-1.0)
[2024-10-11 20:44] LABS: BACTERIA,URINE RARE /HPF (None Seen); MUCUS,URINE RARE LPF (None Seen); RENAL EPITHELIAL CELLS,URINE RARE /HPF (None Seen); SQUAMOUS EPITHELIAL CELL,UR FEW /HPF (0-2); UNCLASSIFIED CRYSTAL 67 /HPF (None Seen); YEAST,URINE BUDDING MOD /HPF (None Seen)
[2024-10-12] VITALS (8 sets, daily range): BP systolic 129–152; BP diastolic 82–94; PULSE 99–120; RESP 16–18; TEMP 98.4–99.8; O2SAT 96–97
[2024-10-12] MEDS: PROMETHAZINE HCL 25 MG/ML 1ML AMPULE IM PRN (00:21)
--- NOTE | 2024-10-12 02:27 | NUR ---
nursing pm note patient alert and oriented times 4. mother at bedside. plan of care discussed with them and they verbalized understanding. patient is on a purewick because she refuses to get up to the restroom. she had an incontinent bowel movement in the bed as well. Patient's mother also does not use her call light. She comes out to the nurse's station to ask for emesis bags, nausea medication for her daughter, and for juices. The patient starts "meowing" when she is in pain. She always wants the door open because she gets "anxious." The patient has slept intermittently about 3 hours tonight. She has had 2 green emesis episodes tonight. door open, bed alarm on, 2 side rails up, will continue to monitor patient.
--- NOTE | 2024-10-12 04:06 | NUR ---
emesis since patient is having several small green emesis episodes tonight, encouraged her to be npo and don't drink fluids anymore. she is noncompliant. her mother brings her water or juice whenever the patient wants. Explained to the mother that the patient can aspirate from drinking fluids and having emesis episodes. She still brings her fluids to drink.
[2024-10-12 05:35] LABS: HEMATOCRIT 43.9 % (36-48); MEAN CORPUSCULAR HEMOGLOBIN 30.2 pg (27.0-33.0); MEAN CORPUSCULAR HGB CONC 33.3 g/dL (32.0-36.0); MEAN CORPUSCULAR VOLUME 90.9 fL (79-99); RED BLOOD CELL COUNT(AUTO) 4.83 MIL/uL (4.00-5.50); RED CELL DISTRIBUTION WIDTH 13.5 % (11.0-15.5); WHITE BLOOD COUNT (AUTO) 5.4 K/uL (4.8-10.8)
[2024-10-12 05:44] LABS: CREATININE 0.9 mg/dL (0.5-1.0); POTASSIUM 3.9 mmol/L (3.5-5.1)
--- NOTE | 2024-10-12 08:38 | NUR ---
SPOKE WITH PATIENT, PATIENT IS STILL REFUSING NGT. PATIENT CURRENTLY HAVING EPISODE OF EMESIS. ZOFRAN HAS BEEN ADMINISTERED. PLAN OF CARE ON GOING.
--- NOTE | 2024-10-12 10:46 | PN ---
[facility] PROGRESS NOTE Date of Service: Oct 12, 2024 Time of Service: 10:43 SUBJECTIVE: [56-year-old female admitted for small-bowel obstruction noted on CT abdomen and pelvis. The patient was evaluated again today in her room, she continues to be very lethargic and weak. Patient is still is having nausea and vomiting just had one episode prior to my arrival. I will keep her NPO for now, we will rule out gastroparesis. She will be going to nuclear med for gastric emptying studies. REVIEW OF SYSTEMS CONSTITUTIONAL: Denies fevers, chills, or night sweats. No unintentional weight loss reported. NEUROLOGICAL: Denies headache, amaurosis fugax, motor weakness, sensory deficit, vertigo/spinning sensation, gait abnormalities, or tremors. ENT: No hearing loss, otalgia, otorrhea, rhinitis, rhinorrhea, hoarseness, or sore throat. CARDIOVASCULAR: Denies any exertional angina, dyspnea on exertion, orthopnea, paroxysmal nocturnal dyspnea, palpitations, life-threatening arrhythmias, claudication. PULMONARY: Denies any shortness of breath, cough, phlegm/sputum, hemoptysis, pleuritic chest pain. SLEEP: Denies morning headaches, daytime somnolence or napping. Denies difficulty falling asleep, staying asleep, waking from sleep. Denies knowledge of snoring. GASTROINTESTINAL: Denies any type of dysphagia to either liquids or solids. Denies nausea, vomiting, pyrosis, early satiety, abdominal pain, diarrhea, constipation, or changes in stool consistency or caliber. Denies coffee-ground emesis, hematemesis, hematochezia, or melanotic stools. GENITOURINARY: Denies frequency, urgency, nocturia, hematuria or incontinence (Storage/Irritative symptoms.) Low urinary stream, straining to void, urinary intermittency or hesitancy, splitting of the voiding stream, terminal dribbling. ENDOCRINOLOGIC: Denies polyuria, polydipsia, polyphagia or heat/cold intolerances. HEMATOLOGIC: Denies thrombophilia/previous clots, or coagulopathy/bleeding disorders. ONCOLOGIC: Denies personal history of malignancy. DERMATOLOGIC: Denies rashes or pruritus. PSYCHIATRIC: Denies any suicidal or homicidal ideation. Denies hallucinations. PHYSICAL EXAM GENERAL APPEARANCE: The patient is awake, alert, and oriented, in no acute cardiopulmonary distress. NEUROLOGICAL: Cranial nerves II-XII grossly intact. Motor is 5/5 in bilateral upper and lower extremities proximal to distal. No sensory deficits. HEENT: Face is symmetric. Pupils are equal and reactive. Extraocular movements are intact. NECK: Supple. No JVD. No thyromegaly. No submental, submandibular, pre- /postauricular, occipital or supraclavicular lymphadenopathy. CHEST: Normal chest expansion. No Telemetry. LUNGS: Absence of any rales, rhonchi or any wheezing. CARDIOVASCULAR: Regular. S1 and S2 normal. No appreciable rubs, murmurs or ga llops. ABDOMEN: Soft, nontender, and nondistended. There is no rebound, voluntary guarding, or rigidity. : Deferred. No Powers. EXTREMITIES: Non-edematous and not cyanotic. No clubbing. Good capillary refill. SKIN: No skin breakdown. Vital Signs (last 8hr) Date Time Temp Pulse Resp B/P (MAP) Pulse Ox O2 Delivery O2 Flow Rate FiO2 10/12/24 09:00 97 Room Air* 0 21 10/12/24 03:45 99.3 120 18 141/82 96 Room Air 21 LABS: Laboratory: Test 10/12/24 05:04 10/11/24 20:25 10/11/24 03:50 10/10/24 15:50 Range/Units White Blood Count 5.4 4.8-10.8 K/uL Red Blood Count 4.83 4.00-5.50 MIL/uL Hemoglobin 14.6 12.0-16.0 g/dL Hematocrit 43.9 36-48 % Mean Corpuscular Volume 90.9 79-99 fL Mean Corpuscular Hemoglobin 30.2 27.0-33.0 pg Mean Corpuscular Hemoglobin Concent 33.3 32.0-36.0 g/dL Red Cell Distribution Width 13.5 11.0-15.5 % Platelet Count 252 130-400 K/uL Mean Platelet Volume 10.2 7.5-10.5 fL Nucleated Red Blood Cells 0.0 0.0-0.19 % Sodium Level 142 136-145 mmol/L Potassium Level 3.9 3.5-5.1 mmol/L Chloride Level 105 101-111 mmol/L Carbon Dioxide Level 31 21-32 mmol/L Blood Urea Nitrogen 17 7-18 mg/dL Creatinine 0.9 0.5-1.0 mg/dL Glomerular Filtration Rate Calc 76 >90 mL/min Random Glucose 128 H 70-105 mg/dL Hemoglobin A1c 5.0 4.0-6.0 % Estimated Average Glucose (eAG) 97 70-126 mg/dL Total Calcium 8.6 8.5-10.1 mg/dL Magnesium Level 2.00 1.80-2.40 mg/dL Urine Color YELLOW YELLOW Urine Appearance TURBID CLEAR Urine pH 6.0 5.0-8.0 Urine Specific [place] 1.037 H 1.001-1.031 Urine Protein 30 H NEGATIVE mg/dL Urine Glucose (UA) NEGATIVE NEGATIVE mg/dL Urine Ketones >=80 NEGATIVE mg/dL Urine Occult Blood NEGATIVE NEGATIVE Urine Nitrate NEGATIVE NEGATIVE Urine Bilirubin 0.5 H NEGATIVE mg/dL Urine Urobilinogen 0.2 0.2-1.0 mg/dL Urine Leukocyte Esterase NEGATIVE NEGATIVE Denise/uL Urine RBC 6-10 H 0-1 /HPF Urine WBC 6-10 H 0-1 /HPF Urine Squamous Epithelial Cells FEW 0-2 /HPF Urine Renal Epithelial Cells RARE None Seen /HPF Urine Other Crystals (Auto) 67 None Seen /HPF Urine Bacteria RARE None Seen /HPF Urine Yeast MOD None Seen /HPF Immature Granulocyte % (Auto) 0.3 0-1 % Neutrophils (%) (Auto) 83.2 H 40.0-77.0 % Lymphocytes (%) (Auto) 11.2 L 21.0-51.0 % Monocytes (%) (Auto) 5.2 3.0-13.0 % Eosinophils (%) (Auto) 0.0 0.0-8.0 % Basophils (%) (Auto) 0.1 0.0-5.0 % Neutrophils # (Auto) 8.1 H 1.8-7.7 K/uL Lymphocytes # (Auto) 1.1 1.0-4.8 K/uL Monocytes # (Auto) 0.5 0.1-1.0 K/uL Eosinophils # (Auto) 0.00 0.00-0.70 K/uL Basophils # (Auto) 0.01 0.00-0.20 K/uL Absolute Immature Granulocyte (auto 0.03 0-1 K/uL Phosphorus Level 3.7 2.5-4.9 mg/dL Prothrombin Time 11.0 9.6-11.6 SEC Prothromb Time International Ratio 0.98 0.85-1.15 Activated Partial Thromboplast Time 31.8 26.3-35.5 SEC Lactic Acid Level 1.3 0.8-2.5 mmol/L Total Bilirubin 1.0 0.2-1.0 mg/dL Direct Bilirubin 0.2 0.0-0.3 mg/dL Aspartate Amino Transf (AST/SGOT) 28 10-37 U/L Alanine Aminotransferase (ALT/SGPT) 36 12-78 U/L Alkaline Phosphatase 145 H 50-136 U/L Troponin I High Sensitivity < 4 L 4-50 ng/L Total Protein 7.8 6.0-8.3 g/dL Albumin 3.8 3.5-5.0 g/dL Lipase 27 16-77 U/L Procalcitonin < 0.05 L 0.05-0.5 ng/mL Current Medications Medications (Trade) Dose Ordered Sig/Wendy Route PRN Reason Start Time Stop Time Status Last Admin Dose Admin Acetaminophen (TYLenol 650MG SUPPOSITORY) 650 mg Q6H PRN RC MILD PAIN (1-3) 10/10/24 18:30 11/09/24 18:29 Famotidine (Pepcid 20mg Vial) 20 mg DAILY IV 10/11/24 09:00 11/10/24 08:59 10/12/24 08:33 20 MG Hydralazine HCl (APRESOLine 20MG INJ) 10 mg Q6H PRN IV For:SBP above 160;DBP above 90 10/10/24 18:30 11/09/24 18:29 Ketorolac Tromethamine (toRADol) 15 mg Q6H PRN IV MODERATE PAIN (4-6) 10/11/24 13:30 10/16/24 13:29 10/11/24 20:18 15 MG Lactated Ringer's 1,000 ml @ 75 mls/hr [id number] IV 10/10/24 18:30 11/09/24 18:29 10/12/24 00:25 75 MLS/HR Magnesium Sulfate 50 ml @ 0 mls/hr PROTOCOL IV 10/12/24 08:00 11/11/24 07:59 Metoclopramide HCl (regLAN 10MG IV) 5 mg TIDAC PRN IVP nausea 10/12/24 09:00 11/11/24 08:59 Morphine Sulfate (morPHINE 2MG SYG) 2 mg Q4H PRN IVP SEVERE PAIN (7-10) 10/11/24 09:30 10/11/24 14:10 DC 10/11/24 09:42 2 MG Morphine Sulfate (morPHINE 4MG SYG) 2 mg Q4H PRN IVP SEVERE PAIN (7-10) 10/10/24 18:30 10/11/24 09:23 DC 10/11/24 02:24 2 MG Ondansetron HCl (zoFRAN 4MG INJ) 4 mg Q6H PRN IV NAUSEA/VOMITING 10/10/24 18:30 11/09/24 18:29 10/12/24 08:33 4 MG Promethazine HCl (Phenergan) 25 mg Q6H PRN IM NAUSEA/VOMITING 10/11/24 13:00 10/12/24 08:47 DC 10/12/24 00:21 25 MG DIAGNOSTICS / RADIOLOGY: [ ] ASSESSMENT: [Small-bowel obstruction by CT abdomen and pelvis, POA ] Leukocytosis, with left shift, POA Elevated alkaline phosphatase, POA Hyperglycemia, POA PLAN: [Admit to medical-surgical floor Continue NPO We will send her for nuclear med for gastric emptying studies to rule out gastroparesis Continue with broad-spectrum IV antibiotics We will continue with IV fluids with LR at 75 mL/hour Continue with antiemetics, we will discontinue Phenergan and start Reglan5 mg IV t.i.d. a.c. We will remove opiates to prevent ileus We will continue to manage pain, we will start patient on Vhlclok20 mg IV q.6 hours We will order hemoglobin A1c We will continue with GI and DVT prophylaxis Repeat labs tomorrow We will follow recommendations from general surgeon Case was seen and examined with Dr. Ugalde, above plan was formulated ] ATTESTATION BY PHYSICIAN I have seen and examined the patient. I reviewed the documentation, medical decision making, and treatment plan as noted by the mid-level provider above. I agree with the findings and plan of care. IRENE UGALDE MD, [facility] Oct 12, 2024 10:46
--- NOTE | 2024-10-12 11:29 | PN ---
This is a 54-year-old female with concerns of small bowel obstruction Interval history: This 54-year-old female seen in her room resting Patient continues to have flatus Nursing reporting nausea and vomiting after diet advanced Patient refusing NG tube Patient is pending gastric emptying study Physical exam General: Awake alert and oriented Heart: Regular rate and rhythm} Lungs: Clear to auscultation no distress Abdomen: [Soft, nontender, nondistended Assessment : This is a 54-year-old female with concerns of nausea and vomiting of unknown etiology Plan: At this point in time patient does appear to be obstructed with consistent flatus We will await for gastric emptying study Continue with conservative management Patient again reminded of recommendations of NG tube placement if she continues with nausea and vomiting Dr. King to be updated on patient's status Vitals/Labs Vital Signs Date Time Temp Pulse Resp B/P (MAP) Pulse Ox O2 Delivery O2 Flow Rate FiO2 10/12/24 09:00 97 Room Air* 0 21 10/12/24 03:45 99.3 120 18 141/82 Laboratory Tests 10/12/24 05:04 Medications Current Medications Morphine Sulfate 2 mg ONCE ONCE IVP Last administered on 10/10/24at 16:59; Start 10/10/24 at 16:00; Stop 10/11/24 at 13:15; Status DC Famotidine 20 mg ONCE ONCE IV Last administered on 10/10/24at 16:59; Start 10/10/24 at 16:00; Stop 10/10/24 at 16:01; Status DC Ondansetron HCl 4 mg ONCE ONCE IVP Last administered on 10/10/24at 16:59; Start 10/10/24 at 16:00; Stop 10/10/24 at 16:01; Status DC Metronidazole/ Sodium Chloride 500 mg ONCE ONCE IV Last administered on 10/10/24at 21:00; Start 10/10/24 at 18:30; Stop 10/10/24 at 18:59; Status DC Sodium Chloride 1,000 ml @ 0 mls/hr ONCE ONCE IV; Start 10/10/24 at 18:30; Stop 10/10/24 at 18:31; Status DC Acetaminophen 650 mg Q6H PRN RC; Start 10/10/24 at 18:30; Stop 11/09/24 at 18:29 Ondansetron HCl 4 mg Q6H PRN IV Last administered on 10/12/24at 08:33; Start 10/10/24 at 18:30; Stop 11/09/24 at 18:29 Morphine Sulfate 2 mg Q4H PRN IVP Last administered on 10/11/24at 02:24; Start 10/10/24 at 18:30; Stop 10/11/24 at 09:23; Status DC Hydralazine HCl 10 mg Q6H PRN IV; Start 10/10/24 at 18:30; Stop 11/09/24 at 18:29 Lactated Ringer's 1,000 ml @ 75 mls/hr [id number] IV Last administered on 10/12/24at 00:25; Start 10/10/24 at 18:30; Stop 11/09/24 at 18:29 Famotidine 20 mg DAILY IV Last administered on 10/12/24at 08:33; Start 10/11/24 at 09:00; Stop 11/10/24 at 08:59 Morphine Sulfate 2 mg Q4H PRN IVP Last administered on 10/11/24at 09:42; Start 10/11/24 at 09:30; Stop 10/11/24 at 14:10; Status DC Promethazine HCl 25 mg Q6H PRN IM Last administered on 10/12/24at 00:21; Start 10/11/24 at 13:00; Stop 10/12/24 at 08:47; Status DC Ketorolac Tromethamine 15 mg Q6H PRN IV Last administered on 10/11/24at 20:18; Start 10/11/24 at 13:30; Stop 10/16/24 at 13:29 Magnesium Sulfate 50 ml @ 0 mls/hr PROTOCOL IV; Start 10/12/24 at 08:00; Stop 11/11/24 at 07:59 Metoclopramide HCl 5 mg TIDAC PRN IVP; Start 10/12/24 at 09:00; Stop 11/11/24 at 08:59 THANIA WYNN Jr. Oct 12, 2024 11:29
[2024-10-12] MEDS: metoCLOPRAmide 10 MG/2 ML VIAL IVP PRN (12:12)
--- NOTE | 2024-10-12 13:38 | NUR ---
DCP Pt awake, alert, oriented X3 lives with mother Charlee Holcomb [phone] in mobile home with 4 steps to enter and ramp available. Pt does not have any medical equipment and anticipates discharge plan is for home. Addendum: 10/12/24 at 1340 by RANDALL PRIETO RN CM Amended: Links added.
[2024-10-12] MEDS: metoPROLOL tartRATE 1 MG/ML 5ML VIAL IV ONE (14:54)
--- NOTE | 2024-10-12 15:07 | EKG ---
[facility] Test Date: 2024-10-12 Test Time: 15:04:22 Pat Name: EVA BUENROSTRO Department: [facility] Room: 413 1 Gender: F Bpm Developer: ISSACQ : [id number] Requested By: IRENE UGALDE Order Number: [id number] Reading MD: Jameson Luna Measurements Intervals [place] Rate: 99 P: 40 ME: 124 QRS: -12 QRSD: 72 T: 46 QT: 360 QTc: 462 Interpretive Statements Normal sinus rhythm Nonspecific T wave abnormality Compared to ECG 10/10/2024 17:00:47 T-wave abnormality now present Sinus tachycardia no longer present Electronically Signed On 10-12-2024 15:48:52 TUBE STATION ATTENDANT by Jameson Luna Please click the below link to view image of tracing.
[2024-10-13] VITALS (7 sets, daily range): BP systolic 134–152; BP diastolic 82–97; PULSE 89–111; RESP 18–19; TEMP 98–99.4; O2SAT 92–96
--- NOTE | 2024-10-13 03:01 | NUR ---
nursing pm note patient alert and oriented times 3. mother at bedside. plan of care discussed with them and they verbalized understanding. encouraged the mother not to give the patient any fluids because she is npo. The mother agrees, but she still brings the patient water. The patient is incontinent with her bowel movements and her urine. We placed a purewick on her because she is too weak to walk to the toilet. She has had 2 green emesis episodes tonight. She slept about 5 hours intermittently tonight. New IV catheter placed on her left wrist. door open, bed alarm on, 2 side rails up. will continue to monitor patient.
[2024-10-13 04:40] LABS: MEAN CORPUSCULAR HEMOGLOBIN 30.2 pg (27.0-33.0); MEAN CORPUSCULAR HGB CONC 33.5 g/dL (32.0-36.0); MEAN CORPUSCULAR VOLUME 90.3 fL (79-99); RED BLOOD CELL COUNT(AUTO) 4.43 MIL/uL (4.00-5.50); RED CELL DISTRIBUTION WIDTH 13.4 % (11.0-15.5); WHITE BLOOD COUNT (AUTO) 6.2 K/uL (4.8-10.8)
[2024-10-13 04:57] LABS: ALBUMIN 2.7 g/dL (3.5-5.0); BILIRUBIN,TOTAL 0.6 mg/dL (0.2-1.0); CREATININE 0.7 mg/dL (0.5-1.0); POTASSIUM 3.4 mmol/L (3.5-5.1); TOTAL PROTEIN, SERUM 6.2 g/dL (6.0-8.3)
[2024-10-13] MEDS: PoTASSium chloRIDE 20MEQ/100ML 100 ML IV PRN (05:25)
--- NOTE | 2024-10-13 09:49 | HMCIMG ---
NUCLEAR MEDICINE GASTRIC EMPTYING STUDY INDICATION: Obstruction; gastroparesis evaluation RADIOPHARMACEUTICAL: Examination was performed with hard boiled egg, with 1.0 mCi 99 M technetium labeled sulfur colloid within. FINDINGS: Region of interest curves were drawn, and qualitatively, good gastric emptying noted with most of the radiotracer out of the stomach by the 90 minute birgit. 50% emptying occurred at 66 minutes. IMPRESSION: Normal gastric emptying scan.
--- NOTE | 2024-10-13 15:07 | PN ---
[facility] PROGRESS NOTE Date of Service: Oct 13, 2024 Time of Service: 15:05 SUBJECTIVE: 10/13/24: [56-year-old female admitted for small-bowel obstruction noted on CT abdomen and pelvis. Patient is hospital day number three and she states she had a bowel movement this morning. She is quite hungry and denies any nausea or vomiting or belly pain. REVIEW OF SYSTEMS CONSTITUTIONAL: Denies fevers, chills, or night sweats. No unintentional weight loss reported. NEUROLOGICAL: Denies headache, amaurosis fugax, motor weakness, sensory deficit, vertigo/spinning sensation, gait abnormalities, or tremors. ENT: No hearing loss, otalgia, otorrhea, rhinitis, rhinorrhea, hoarseness, or sore throat. CARDIOVASCULAR: Denies any exertional angina, dyspnea on exertion, orthopnea, paroxysmal nocturnal dyspnea, palpitations, life-threatening arrhythmias, claudication. PULMONARY: Denies any shortness of breath, cough, phlegm/sputum, hemoptysis, pleuritic chest pain. SLEEP: Denies morning headaches, daytime somnolence or napping. Denies difficulty falling asleep, staying asleep, waking from sleep. Denies knowledge of snoring. GASTROINTESTINAL: Denies any type of dysphagia to either liquids or solids. Denies nausea, vomiting, pyrosis, early satiety, abdominal pain, diarrhea, constipation, or changes in stool consistency or caliber. Denies coffee-ground emesis, hematemesis, hematochezia, or melanotic stools. GENITOURINARY: Denies frequency, urgency, nocturia, hematuria or incontinence (Storage/Irritative symptoms.) Low urinary stream, straining to void, urinary intermittency or hesitancy, splitting of the voiding stream, terminal dribbling. ENDOCRINOLOGIC: Denies polyuria, polydipsia, polyphagia or heat/cold intolerances. HEMATOLOGIC: Denies thrombophilia/previous clots, or coagulopathy/bleeding disorders. ONCOLOGIC: Denies personal history of malignancy. DERMATOLOGIC: Denies rashes or pruritus. PSYCHIATRIC: Denies any suicidal or homicidal ideation. Denies hallucinations. PHYSICAL EXAM GENERAL APPEARANCE: The patient is awake, alert, and oriented, in no acute cardiopulmonary distress. NEUROLOGICAL: Cranial nerves II-XII grossly intact. Motor is 5/5 in bilateral upper and lower extremities proximal to distal. No sensory deficits. HEENT: Face is symmetric. Pupils are equal and reactive. Extraocular movements are intact. NECK: Supple. No JVD. No thyromegaly. No submental, submandibular, pre- /postauricular, occipital or supraclavicular lymphadenopathy. CHEST: Normal chest expansion. No Telemetry. LUNGS: Absence of any rales, rhonchi or any wheezing. CARDIOVASCULAR: Regular. S1 and S2 normal. No appreciable rubs, murmurs or gallops. ABDOMEN: Soft, nontender, and nondistended. There is no rebound, voluntary guarding, or rigidity. : Deferred. No Powers. EXTREMITIES: Non-edematous and not cyanotic. No clubbing. Good capillary refill. SKIN: No skin breakdown. Vital Signs (last 8hr) Date Time Temp Pulse Resp B/P (MAP) Pulse Ox O2 Delivery O2 Flow Rate FiO2 10/13/24 12:00 98.1 91 19 143/82 95 Room Air 10/13/24 11:49 96 Room Air* 0 21 10/13/24 08:00 98.2 89 19 140/97 97 Room Air LABS: Laboratory: Test 10/13/24 04:25 10/12/24 05:04 10/11/24 20:25 Range/Units White Blood Count 6.2 4.8-10.8 K/uL Red Blood Count 4.43 4.00-5.50 MIL/uL Hemoglobin 13.4 12.0-16.0 g/dL Hematocrit 40.0 36-48 % Mean Corpuscular Volume 90.3 79-99 fL Mean Corpuscular Hemoglobin 30.2 27.0-33.0 pg Mean Corpuscular Hemoglobin Concent 33.5 32.0-36.0 g/dL Red Cell Distribution Width 13.4 11.0-15.5 % Platelet Count 219 130-400 K/uL Mean Platelet Volume 10.0 7.5-10.5 fL Nucleated Red Blood Cells 0.0 0.0-0.19 % Sodium Level 141 136-145 mmol/L Potassium Level 3.4 L 3.5-5.1 mmol/L Chloride Level 103 101-111 mmol/L Carbon Dioxide Level 30 21-32 mmol/L Blood Urea Nitrogen 21 H 7-18 mg/dL Creatinine 0.7 0.5-1.0 mg/dL Glomerular Filtration Rate Calc 103 >90 mL/min Random Glucose 93 70-105 mg/dL Total Calcium 8.2 L 8.5-10.1 mg/dL Magnesium Level 2.00 1.80-2.40 mg/dL Total Bilirubin 0.6 0.2-1.0 mg/dL Aspartate Amino Transf (AST/SGOT) 27 10-37 U/L Alanine Aminotransferase (ALT/SGPT) 40 12-78 U/L Alkaline Phosphatase 88 50-136 U/L Total Protein 6.2 6.0-8.3 g/dL Albumin 2.7 L 3.5-5.0 g/dL Hemoglobin A1c 5.0 4.0-6.0 % Estimated Average Glucose (eAG) 97 70-126 mg/dL Urine Color YELLOW YELLOW Urine Appearance TURBID CLEAR Urine pH 6.0 5.0-8.0 Urine Specific [place] 1.037 H 1.001-1.031 Urine Protein 30 H NEGATIVE mg/dL Urine Glucose (UA) NEGATIVE NEGATIVE mg/dL Urine Ketones >=80 NEGATIVE mg/dL Urine Occult Blood NEGATIVE NEGATIVE Urine Nitrate NEGATIVE NEGATIVE Urine Bilirubin 0.5 H NEGATIVE mg/dL Urine Urobilinogen 0.2 0.2-1.0 mg/dL Urine Leukocyte Esterase NEGATIVE NEGATIVE Denise/uL Urine RBC 6-10 H 0-1 /HPF Urine WBC 6-10 H 0-1 /HPF Urine Squamous Epithelial Cells FEW 0-2 /HPF Urine Renal Epithelial Cells RARE None Seen /HPF Urine Other Crystals (Auto) 67 None Seen /HPF Urine Bacteria RARE None Seen /HPF Urine Yeast MOD None Seen /HPF Current Medications Medications (Trade) Dose Ordered Sig/Wendy Route PRN Reason Start Time Stop Time Status Last Admin Dose Admin Acetaminophen (TYLenol 650MG SUPPOSITORY) 650 mg Q6H PRN RC MILD PAIN (1-3) 10/10/24 18:30 11/09/24 18:29 Famotidine (Pepcid 20mg Vial) 20 mg DAILY IV 10/11/24 09:00 11/10/24 08:59 10/13/24 08:44 20 MG Hydralazine HCl (APRESOLine 20MG INJ) 10 mg Q6H PRN IV For:SBP above 160;DBP above 90 10/10/24 18:30 11/09/24 18:29 Ketorolac Tromethamine (toRADol) 15 mg Q6H PRN IV MODERATE PAIN (4-6) 10/11/24 13:30 10/16/24 13:29 10/13/24 13:58 15 MG Lactated Ringer's 1,000 ml @ 75 mls/hr [id number] IV 10/10/24 18:30 11/09/24 18:29 10/13/24 05:25 75 MLS/HR Magnesium Sulfate 50 ml @ 0 mls/hr PROTOCOL IV 10/12/24 08:00 11/11/24 07:59 Metoclopramide HCl (regLAN 10MG IV) 5 mg TIDAC PRN IVP nausea 10/12/24 09:00 11/11/24 08:59 10/12/24 12:12 5 MG Morphine Sulfate (morPHINE 2MG SYG) 2 mg Q4H PRN IVP SEVERE PAIN (7-10) 10/11/24 09:30 10/11/24 14:10 DC 10/11/24 09:42 2 MG Morphine Sulfate (morPHINE 4MG SYG) 2 mg Q4H PRN IVP SEVERE PAIN (7-10) 10/10/24 18:30 10/11/24 09:23 DC 10/11/24 02:24 2 MG Ondansetron HCl (zoFRAN 4MG INJ) 4 mg Q6H PRN IV NAUSEA/VOMITING 10/10/24 18:30 11/09/24 18:29 10/13/24 13:58 4 MG Potassium Chloride 100 ml @ 50 mls/hr AD PRN IV POTASSIUM PROTOCOL 10/13/24 05:30 11/12/24 05:29 10/13/24 05:25 50 MLS/HR Promethazine HCl (Phenergan) 25 mg Q6H PRN IM NAUSEA/VOMITING 10/11/24 13:00 10/12/24 08:47 DC 10/12/24 00:21 25 MG DIAGNOSTICS / RADIOLOGY: [ ] ASSESSMENT: [Small-bowel obstruction by CT abdomen and pelvis, POA ] Leukocytosis, with left shift, POA Elevated alkaline phosphatase, POA Hyperglycemia, POA PLAN: Continue with supportive care We will start with clear liquid diet if okay with surgery Monitor patient's renal function and CBC in the a.m.. Further orders to follow as needed ] CYNTHIA MOREAU MD Oct 13, 2024 15:07
--- NOTE | 2024-10-13 17:45 | NUR ---
dr gould here new orders for ct abdomen no iv contrast only po water based radiology asst informed..
--- NOTE | 2024-10-13 18:23 | PN ---
GENERAL SURGERY PROGRESS NOTE Date/Time Patient Seen: 10/13/2024 4:00 p.m. Problem List: Small bowel obstruction Interval History: Patient reports that she has had no vomiting today. She did have some nausea for which she was medicated with Zofran. She had an explosive bowel movement today. Current Medications Medications (Trade) Dose Ordered Sig/Wendy Route Start Time Stop Time Status Last Admin Dose Admin Famotidine (Pepcid 20mg Vial) 20 mg DAILY IV 10/11/24 09:00 11/10/24 08:59 10/13/24 08:44 20 MG Lactated Ringer's 1,000 ml @ 75 mls/hr [id number] IV 10/10/24 18:30 11/09/24 18:29 10/13/24 05:25 75 MLS/HR Magnesium Sulfate 50 ml @ 0 mls/hr PROTOCOL IV 10/12/24 08:00 11/11/24 07:59 Physical Examination: GENERAL: No acute distress. HEAD: Normal with no signs of head trauma. LUNGS: Respirations nonlabored HEART: Regular rate and rhythm ABD: Soft, mildly distended in the upper abdomen, mildly tender to palpation in the upper abdomen, no rebound, no guarding : Not examined LYMPH: No lymphadenopathy noted. EXT: No clubbing, cyanosis or edema. SKIN: No rashes or lesions noted. NEURO: Awake, alert, and oriented x3. No focal sensory or strength deficits noted. Vital Signs (last 8hr) Date Time Temp Pulse Resp B/P (MAP) Pulse Ox O2 Delivery O2 Flow Rate FiO2 10/13/24 16:00 99.3 94 19 134/83 96 Room Air 10/13/24 12:00 98.1 91 19 143/82 95 Room Air 10/13/24 11:49 96 Room Air* 0 21 Laboratory: Hematology Labs: Test 10/13/24 04:25 Range/Units White Blood Count 6.2 4.8-10.8 K/uL Red Blood Count 4.43 4.00-5.50 MIL/uL Hemoglobin 13.4 12.0-16.0 g/dL Hematocrit 40.0 36-48 % Mean Corpuscular Volume 90.3 79-99 fL Mean Corpuscular Hemoglobin 30.2 27.0-33.0 pg Mean Corpuscular Hemoglobin Concent 33.5 32.0-36.0 g/dL Red Cell Distribution Width 13.4 11.0-15.5 % Platelet Count 219 130-400 K/uL Mean Platelet Volume 10.0 7.5-10.5 fL Nucleated Red Blood Cells 0.0 0.0-0.19 % Chemistry Labs: Test 10/13/24 04:25 10/12/24 05:04 Range/Units Sodium Level 141 136-145 mmol/L Potassium Level 3.4 L 3.5-5.1 mmol/L Chloride Level 103 101-111 mmol/L Carbon Dioxide Level 30 21-32 mmol/L Blood Urea Nitrogen 21 H 7-18 mg/dL Creatinine 0.7 0.5-1.0 mg/dL Glomerular Filtration Rate Calc 103 >90 mL/min Random Glucose 93 70-105 mg/dL Total Calcium 8.2 L 8.5-10.1 mg/dL Magnesium Level 2.00 1.80-2.40 mg/dL Total Bilirubin 0.6 0.2-1.0 mg/dL Aspartate Amino Transf (AST/SGOT) 27 10-37 U/L Alanine Aminotransferase (ALT/SGPT) 40 12-78 U/L Alkaline Phosphatase 88 50-136 U/L Total Protein 6.2 6.0-8.3 g/dL Albumin 2.7 L 3.5-5.0 g/dL Hemoglobin A1c 5.0 4.0-6.0 % Estimated Average Glucose (eAG) 97 70-126 mg/dL Diagnostics / Radiology: Gastric emptying study 10/12/2024 within normal limits Impression and Plan: This is a 54-year-old female with what appears to be a partial small bowel obstruction that is resolving. She is still little distended today. I will or marian a repeat CT scan with p.o. contrast to better characterize the progression of her bowel obstruction. Depending on the results patient may be okay for clear liquids today. RAI LEMUS DO Oct 13, 2024 18:23
[2024-10-14] VITALS (7 sets, daily range): BP systolic 136–160; BP diastolic 81–93; PULSE 89–105; RESP 18–20; TEMP 97.5–98.7; O2SAT 92–93
[2024-10-14 05:11] LABS: BASOPHILS # (AUTO) 0.01 K/uL (0.00-0.20); BASOPHILS % (AUTO) 0.1 % (0.0-5.0); EOSINOPHILS # (AUTO) 0.01 K/uL (0.00-0.70); EOSINOPHILS % (AUTO) 0.1 % (0.0-8.0); HEMATOCRIT 41.1 % (36-48); IMMATURE GRANULOCYTE ABSOLUTE 0.03 K/uL (0-1); LYMPHOCYTES # (AUTO) 1.3 K/uL (1.0-4.8); MEAN CORPUSCULAR HEMOGLOBIN 30.3 pg (27.0-33.0); MEAN CORPUSCULAR HGB CONC 34.1 g/dL (32.0-36.0); MONOCYTES # (AUTO) 0.8 K/uL (0.1-1.0); MONOCYTES % (AUTO) 11.1 % (3.0-13.0); NEUTROPHILS # (AUTO) 5.3 K/uL (1.8-7.7); NEUTROPHILS % (AUTO) 71.3 % (40.0-77.0); PLATELET COUNT (AUTO) 235 K/uL (130-400); RED BLOOD CELL COUNT(AUTO) 4.62 MIL/uL (4.00-5.50); RED CELL DISTRIBUTION WIDTH 13.2 % (11.0-15.5); WHITE BLOOD COUNT (AUTO) 7.4 K/uL (4.8-10.8)
[2024-10-14 05:26] LABS: CREATININE 0.5 mg/dL (0.5-1.0); POTASSIUM 3.3 mmol/L (3.5-5.1)
--- NOTE | 2024-10-14 09:01 | HMCIMG ---
CT ABDOMEN/PELVIS W/O CONTRAST REASON: ILIUS VS OBSTRUCTION COMPARISON: 10/10/2024 TECHNIQUE: Images are obtained from lung bases to symphysis pubis following oral contrast only. FINDINGS: Lung bases are clear. There are no focal liver lesions. There are normal-appearing kidneys.. Spleen and pancreas appear unremarkable. The gallbladder appears normal as well. There is moderate distention of proximal small bowel loops consistent with a component of partial obstruction. There is passage of contrast distally to normal caliber distal small bowel loops. Distal small bowel and colon appear decompressed. The appendix was visualized and appears unremarkable. There is no evidence of free fluid or intraperitoneal air. There are no focal fluid collections. Aorta and retroperitoneum appear normal. The uterus appears diffusely enlarged at 8.4 x 10.6 x 9.2 cm probably fibroids, pelvic ultrasound would be helpful to confirm. Pelvic soft tissues appear otherwise unremarkable. The anterior abdominal wall is intact. Osseous structures appear unremarkable. IMPRESSION: 1. Dilated proximal small bowel loops with a transition zone, there is passage of contrast into the distal normal caliber small bowel loops, findings are consistent with a partial obstruction. 2. Enlarged uterus, probably fibroids, ultrasound would be helpful to confirm, unchanged. CT was performed with one or more following dose reduction techniques: automated exposure control, adjustment of the mA and kv according to patient's size, or use of a iterative reconstruction technique.
[2024-10-14] MEDS ORDERED: MAGNESIUM 2GM PREMIX 50ML 50 ML IV PRN (10:30)
[2024-10-14] MEDS ORDERED: PoTASSium chloRIDE 20MEQ/100ML 100 ML IV PRN (10:30)
[2024-10-14] MEDS ORDERED: metoPROLOL tartRATE 1 MG/ML 5ML VIAL IV PRN (11:30)
--- NOTE | 2024-10-14 12:21 | PN ---
[facility] PROGRESS NOTE Date of Service: Oct 14, 2024 Time of Service: 12:19 SUBJECTIVE: 56-year-old female admitted for small-bowel obstruction noted on CT abdomen and pelvis. Patient was evaluated in the room, she is still feeling nauseated. CT abdomen and pelvis repeated last night which showed partial bowel obstruction. She is currently NPO. We will await for general surgeon recommendation. For now she will remain NPO and continue with antiemetics. REVIEW OF SYSTEMS CONSTITUTIONAL: Denies fevers, chills, or night sweats. No unintentional weight loss reported. NEUROLOGICAL: Denies headache, amaurosis fugax, motor weakness, sensory deficit, vertigo/spinning sensation, gait abnormalities, or tremors. ENT: No hearing loss, otalgia, otorrhea, rhinitis, rhinorrhea, hoarseness, or sore throat. CARDIOVASCULAR: Denies any exertional angina, dyspnea on exertion, orthopnea, paroxysmal nocturnal dyspnea, palpitations, life-threatening arrhythmias, claudication. PULMONARY: Denies any shortness of breath, cough, phlegm/sputum, hemoptysis, pleuritic chest pain. SLEEP: Denies morning headaches, daytime somnolence or napping. Denies difficulty falling asleep, staying asleep, waking from sleep. Denies knowledge of snoring. GASTROINTESTINAL: Denies any type of dysphagia to either liquids or solids. Denies nausea, vomiting, pyrosis, early satiety, abdominal pain, diarrhea, constipation, or changes in stool consistency or caliber. Denies coffee-ground emesis, hematemesis, hematochezia, or melanotic stools. GENITOURINARY: Denies frequency, urgency, nocturia, hematuria or incontinence (Storage/Irritative symptoms.) Low urinary stream, straining to void, urinary intermittency or hesitancy, splitting of the voiding stream, terminal dribbling. ENDOCRINOLOGIC: Denies polyuria, polydipsia, polyphagia or heat/cold intolerances. HEMATOLOGIC: Denies thrombophilia/previous clots, or coagulopathy/bleeding disorders. ONCOLOGIC: Denies personal history of malignancy. DERMATOLOGIC: Denies rashes or pruritus. PSYCHIATRIC: Denies any suicidal or homicidal ideation. Denies hallucinations. PHYSICAL EXAM GENERAL APPEARANCE: The patient is awake, alert, and oriented, in no acute cardiopulmonary distress. NEUROLOGICAL: Cranial nerves II-XII grossly intact. Motor is 5/5 in bilateral upper and lower extremities proximal to distal. No sensory deficits. HEENT: Face is symmetric. Pupils are equal and reactive. Extraocular movements are intact. NECK: Supple. No JVD. No thyromegaly. No submental, submandibular, pre-/post auricular, occipital or supraclavicular lymphadenopathy. CHEST: Normal chest expansion. No Telemetry. LUNGS: Absence of any rales, rhonchi or any wheezing. CARDIOVASCULAR: Regular. S1 and S2 normal. No appreciable rubs, murmurs or gallops. ABDOMEN: Soft, nontender, and nondistended. There is no rebound, voluntary guarding, or rigidity. : Deferred. No Powers. EXTREMITIES: Non-edematous and not cyanotic. No clubbing. Good capillary refill. SKIN: No skin breakdown. Vital Signs (last 8hr) Date Time Temp Pulse Resp B/P (MAP) Pulse Ox O2 Delivery O2 Flow Rate FiO2 10/14/24 08:00 98.8 102 19 154/93 99 Room Air LABS: Laboratory: Test 10/14/24 04:42 10/13/24 04:25 Range/Units White Blood Count 7.4 4.8-10.8 K/uL Red Blood Count 4.62 4.00-5.50 MIL/uL Hemoglobin 14.0 12.0-16.0 g/dL Hematocrit 41.1 36-48 % Mean Corpuscular Volume 89.0 79-99 fL Mean Corpuscular Hemoglobin 30.3 27.0-33.0 pg Mean Corpuscular Hemoglobin Concent 34.1 32.0-36.0 g/dL Red Cell Distribution Width 13.2 11.0-15.5 % Platelet Count 235 130-400 K/uL Mean Platelet Volume 10.1 7.5-10.5 fL Immature Granulocyte % (Auto) 0.4 0-1 % Neutrophils (%) (Auto) 71.3 40.0-77.0 % Lymphocytes (%) (Auto) 17.0 L 21.0-51.0 % Monocytes (%) (Auto) 11.1 3.0-13.0 % Eosinophils (%) (Auto) 0.1 0.0-8.0 % Basophils (%) (Auto) 0.1 0.0-5.0 % Neutrophils # (Auto) 5.3 1.8-7.7 K/uL Lymphocytes # (Auto) 1.3 1.0-4.8 K/uL Monocytes # (Auto) 0.8 0.1-1.0 K/uL Eosinophils # (Auto) 0.01 0.00-0.70 K/uL Basophils # (Auto) 0.01 0.00-0.20 K/uL Absolute Immature Granulocyte (auto 0.03 0-1 K/uL Nucleated Red Blood Cells 0.0 0.0-0.19 % Sodium Level 140 136-145 mmol/L Potassium Level 3.3 L 3.5-5.1 mmol/L Chloride Level 100 L 101-111 mmol/L Carbon Dioxide Level 30 21-32 mmol/L Blood Urea Nitrogen 14 7-18 mg/dL Creatinine 0.5 0.5-1.0 mg/dL Glomerular Filtration Rate Calc 111 >90 mL/min Random Glucose 96 70-105 mg/dL Total Calcium 8.5 8.5-10.1 mg/dL Magnesium Level 2.00 1.80-2.40 mg/dL Total Bilirubin 0.6 0.2-1.0 mg/dL Aspartate Amino Transf (AST/SGOT) 27 10-37 U/L Alanine Aminotransferase (ALT/SGPT) 40 12-78 U/L Alkaline Phosphatase 88 50-136 U/L Total Protein 6.2 6.0-8.3 g/dL Albumin 2.7 L 3.5-5.0 g/dL Current Medications Medications (Trade) Dose Ordered Sig/Wendy Route PRN Reason Start Time Stop Time Status Last Admin Dose Admin Acetaminophen (TYLenol 650MG SUPPOSITORY) 650 mg Q6H PRN RC MILD PAIN (1-3) 10/10/24 18:30 11/09/24 18:29 Famotidine (Pepcid 20mg Vial) 20 mg DAILY IV 10/11/24 09:00 11/10/24 08:59 10/14/24 09:14 20 MG Hydralazine HCl (APRESOLine 20MG INJ) 10 mg Q6H PRN IV For:SBP above 160;DBP above 90 10/10/24 18:30 11/09/24 18:29 Ketorolac Tromethamine (toRADol) 15 mg Q6H PRN IV MODERATE PAIN (4-6) 10/11/24 13:30 10/16/24 13:29 10/13/24 13:58 15 MG Lactated Ringer's 1,000 ml @ 75 mls/hr [id number] IV 10/10/24 18:30 11/09/24 18:29 10/14/24 02:04 75 MLS/HR Magnesium Sulfate 50 ml @ 0 mls/hr PROTOCOL IV 10/12/24 08:00 11/11/24 07:59 Magnesium Sulfate 50 ml @ 0 mls/hr PROTOCOL PRN IV MAGNESIUM PROTOCOL 10/14/24 10:30 10/14/24 10:14 DC Metoclopramide HCl (regLAN 10MG IV) 5 mg TIDAC PRN IVP nausea 10/12/24 09:00 11/11/24 08:59 10/12/24 12:12 5 MG Metoprolol Tartrate (loprESSOR) 5 mg Q4H PRN IV INCREASED HEART RATE 10/14/24 11:30 10/14/24 11:32 DC Morphine Sulfate (morPHINE 2MG SYG) 2 mg Q4H PRN IVP SEVERE PAIN (7-10) 10/11/24 09:30 10/11/24 14:10 DC 10/11/24 09:42 2 MG Morphine Sulfate (morPHINE 4MG SYG) 2 mg Q4H PRN IVP SEVERE PAIN (7-10) 10/10/24 18:30 10/11/24 09:23 DC 10/11/24 02:24 2 MG Ondansetron HCl (zoFRAN 4MG INJ) 4 mg Q6H PRN IV NAUSEA/VOMITING 10/10/24 18:30 11/09/24 18:29 10/14/24 09:14 4 MG Potassium Chloride 100 ml @ 50 mls/hr AD PRN IV POTASSIUM PROTOCOL 10/13/24 05:30 11/12/24 05:29 10/14/24 05:49 50 MLS/HR Potassium Chloride 100 ml @ 50 mls/hr AD PRN IV POTASSIUM PROTOCOL 10/14/24 10:30 10/14/24 10:14 DC Promethazine HCl (Phenergan) 25 mg Q6H PRN IM NAUSEA/VOMITING 10/11/24 13:00 10/12/24 08:47 DC 10/12/24 00:21 25 MG DIAGNOSTICS / RADIOLOGY: [ ] ASSESSMENT: [Small-bowel obstruction by CT abdomen and pelvis, POA ] Leukocytosis, with left shift, POA Elevated alkaline phosphatase, POA Hyperglycemia, POA PLAN: Continue with supportive care Patient will continue NPO until surgery with cleared We will continue to monitor electrolytes and replete as necessary Continue with antiemetics as needed Further orders to follow as needed We will repeat labs tomorrow Continue with GI and DVT prophylaxis Case discussed with Dr. Ugalde, above plan was formulated ] ATTESTATION BY PHYSICIAN I have seen and examined the patient. I reviewed the documentation, medical decision making, and treatment plan as noted by the mid-level provider above. I agree with the findings and plan of care. IRENE UGALDE MD, [facility] Oct 14, 2024 12:21
--- NOTE | 2024-10-14 20:21 | PN ---
will order a small bowel series to see if there are any hang ups in small intestine. will follow results. dr. cameron Vitals/Labs Vital Signs Date Time Temp Pulse Resp B/P (MAP) Pulse Ox O2 Delivery O2 Flow Rate FiO2 10/14/24 12:00 97.7 89 19 136/86 97 Room Air 10/14/24 08:00 0 21 Laboratory Tests 10/14/24 04:42 Medications Current Medications Morphine Sulfate 2 mg ONCE ONCE IVP Last administered on 10/10/24at 16:59; Start 10/10/24 at 16:00; Stop 10/11/24 at 13:15; Status DC Famotidine 20 mg ONCE ONCE IV Last administered on 10/10/24at 16:59; Start 10/10/24 at 16:00; Stop 10/10/24 at 16:01; Status DC Ondansetron HCl 4 mg ONCE ONCE IVP Last administered on 10/10/24at 16:59; Start 10/10/24 at 16:00; Stop 10/10/24 at 16:01; Status DC Metronidazole/ Sodium Chloride 500 mg ONCE ONCE IV Last administered on 10/10/24at 21:00; Start 10/10/24 at 18:30; Stop 10/10/24 at 18:59; Status DC Sodium Chloride 1,000 ml @ 0 mls/hr ONCE ONCE IV; Start 10/10/24 at 18:30; Stop 10/10/24 at 18:31; Status DC Acetaminophen 650 mg Q6H PRN RC; Start 10/10/24 at 18:30; Stop 11/09/24 at 18:29 Ondansetron HCl 4 mg Q6H PRN IV Last administered on 10/14/24at 09:14; Start 10/10/24 at 18:30; Stop 11/09/24 at 18:29 Morphine Sulfate 2 mg Q4H PRN IVP Last administered on 10/11/24at 02:24; Start 10/10/24 at 18:30; Stop 10/11/24 at 09:23; Status DC Hydralazine HCl 10 mg Q6H PRN IV; Start 10/10/24 at 18:30; Stop 11/09/24 at 18:29 Lactated Ringer's 1,000 ml @ 75 mls/hr [id number] IV Last administered on 10/14/24at 02:04; Start 10/10/24 at 18:30; Stop 11/09/24 at 18:29 Famotidine 20 mg DAILY IV Last administered on 10/14/24at 09:14; Start 10/11/24 at 09:00; Stop 11/10/24 at 08:59 Morphine Sulfate 2 mg Q4H PRN IVP Last administered on 10/11/24at 09:42; Start 10/11/24 at 09:30; Stop 10/11/24 at 14:10; Status DC Promethazine HCl 25 mg Q6H PRN IM Last administered on 10/12/24at 00:21; Start 10/11/24 at 13:00; Stop 10/12/24 at 08:47; Status DC Ketorolac Tromethamine 15 mg Q6H PRN IV Last administered on 10/13/24at 13:58; Start 10/11/24 at 13:30; Stop 10/16/24 at 13:29 Magnesium Sulfate 50 ml @ 0 mls/hr PROTOCOL IV; Start 10/12/24 at 08:00; Stop 11/11/24 at 07:59 Metoclopramide HCl 5 mg TIDAC PRN IVP Last administered on 10/12/24at 12:12; Start 10/12/24 at 09:00; Stop 11/11/24 at 08:59 Metoprolol Tartrate 5 mg ONCE ONCE IV Last administered on 10/12/24at 14:54; Start 10/12/24 at 15:00; Stop 10/12/24 at 15:01; Status DC Potassium Chloride 100 ml @ 50 mls/hr AD PRN IV Last administered on 10/14/24at 19:30; Start 10/13/24 at 05:30; Stop 11/12/24 at 05:29 Potassium Chloride 100 ml @ 50 mls/hr AD PRN IV; Start 10/14/24 at 10:30; Stop 10/14/24 at 10:14; Status DC Magnesium Sulfate 50 ml @ 0 mls/hr PROTOCOL PRN IV; Start 10/14/24 at 10:30; Stop 10/14/24 at 10:14; Status DC Metoprolol Tartrate 5 mg Q4H PRN IV; Start 10/14/24 at 11:30; Stop 10/14/24 at 11:32; Status ENDER WALL MD Oct 14, 2024 20:21
[2024-10-15] VITALS (8 sets, daily range): BP systolic 128–148; BP diastolic 66–97; PULSE 74–96; RESP 17–19; TEMP 98–98.4; O2SAT 97
[2024-10-15 05:29] LABS: MAGNESIUM 1.9 mg/dL (1.80-2.40); POTASSIUM 4.1 mmol/L (3.5-5.1)
[2024-10-15] MEDS ORDERED: DIATR MEGLU/DIATRIZOATE SODIUM 30 ML BOTTLE ONE (09:34)
[2024-10-15] MEDS: MAGNESIUM 2GM PREMIX 50ML 50 ML IV SCH (11:03)
--- NOTE | 2024-10-15 12:36 | PN ---
[facility] PROGRESS NOTE Date of Service: Oct 15, 2024 Time of Service: 12:33 SUBJECTIVE: 56-year-old female admitted for small-bowel obstruction noted on CT abdomen and pelvis. Patient was evaluated in the room, she is still feeling nauseated. CT abdomen and pelvis repeated last night which showed partial bowel obstruction. Patient was evaluated by general surgeon yesterday who recommended small-bowel follow-through. We will follow up with small-bowel follow-through results. For now patient will wrist clear liquid diet per general surgeon. REVIEW OF SYSTEMS CONSTITUTIONAL: Denies fevers, chills, or night sweats. No unintentional weight loss reported. NEUROLOGICAL: Denies headache, amaurosis fugax, motor weakness, sensory deficit, vertigo/spinning sensation, gait abnormalities, or tremors. ENT: No hearing loss, otalgia, otorrhea, rhinitis, rhinorrhea, hoarseness, or sore throat. CARDIOVASCULAR: Denies any exertional angina, dyspnea on exertion, orthopnea, paroxysmal nocturnal dyspnea, palpitations, life-threatening arrhythmias, claudication. PULMONARY: Denies any shortness of breath, cough, phlegm/sputum, hemoptysis, pleuritic chest pain. SLEEP: Denies morning headaches, daytime somnolence or napping. Denies diffic ulty falling asleep, staying asleep, waking from sleep. Denies knowledge of snoring. GASTROINTESTINAL: Denies any type of dysphagia to either liquids or solids. Denies nausea, vomiting, pyrosis, early satiety, abdominal pain, diarrhea, constipation, or changes in stool consistency or caliber. Denies coffee-ground emesis, hematemesis, hematochezia, or melanotic stools. GENITOURINARY: Denies frequency, urgency, nocturia, hematuria or incontinence (Storage/Irritative symptoms.) Low urinary stream, straining to void, urinary intermittency or hesitancy, splitting of the voiding stream, terminal dribbling. ENDOCRINOLOGIC: Denies polyuria, polydipsia, polyphagia or heat/cold into lerances. HEMATOLOGIC: Denies thrombophilia/previous clots, or coagulopathy/bleeding disorders. ONCOLOGIC: Denies personal history of malignancy. DERMATOLOGIC: Denies rashes or pruritus. PSYCHIATRIC: Denies any suicidal or homicidal ideation. Denies hallucinations. PHYSICAL EXAM GENERAL APPEARANCE: The patient is awake, alert, and oriented, in no acute cardiopulmonary distress. NEUROLOGICAL: Cranial nerves II-XII grossly intact. Motor is 5/5 in bilateral upper and lower extremities proximal to distal. No sensory deficits. HEENT: Face is symmetric. Pupils are equal and reactive. Extraocular movements are intact. NECK: Supple. No JVD. No thyromegaly. No submental, submandibular, pre- /postauricular, occipital or supraclavicular lymphadenopathy. CHEST: Normal chest expansion. No Telemetry. LUNGS: Absence of any rales, rhonchi or any wheezing. CARDIOVASCULAR: Regular. S1 and S2 normal. No appreciable rubs, murmurs or gallops. ABDOMEN: Soft, nontender, and nondistended. There is no rebound, voluntary guarding, or rigidity. : Deferred. No Powers. EXTREMITIES: Non-edematous and not cyanotic. No clubbing. Good capillary refill. SKIN: No skin breakdown. Vital Signs (last 8hr) Date Time Temp Pulse Resp B/P (MAP) Pulse Ox O2 Delivery O2 Flow Rate FiO2 10/15/24 12:00 98.2 96 17 145/80 98 Room Air 10/15/24 08:00 98.1 94 18 147/84 97 Room Air LABS: Laboratory: Test 10/15/24 05:01 10/14/24 04:42 Range/Units Potassium Level 4.1 3.5-5.1 mmol/L Magnesium Level 1.90 1.80-2.40 mg/dL White Blood Count 7.4 4.8-10.8 K/uL Red Blood Count 4.62 4.00-5.50 MIL/uL Hemoglobin 14.0 12.0-16.0 g/dL Hematocrit 41.1 36-48 % Mean Corpuscular Volume 89.0 79-99 fL Mean Corpuscular Hemoglobin 30.3 27.0-33.0 pg Mean Corpuscular Hemoglobin Concent 34.1 32.0-36.0 g/dL Red Cell Distribution Width 13.2 11.0-15.5 % Platelet Count 235 130-400 K/uL Mean Platelet Volume 10.1 7.5-10.5 fL Immature Granulocyte % (Auto) 0.4 0-1 % Neutrophils (%) (Auto) 71.3 40.0-77.0 % Lymphocytes (%) (Auto) 17.0 L 21.0-51.0 % Monocytes (%) (Auto) 11.1 3.0-13.0 % Eosinophils (%) (Auto) 0.1 0.0-8.0 % Basophils (%) (Auto) 0.1 0.0-5.0 % Neutrophils # (Auto) 5.3 1.8-7.7 K/uL Lymphocytes # (Auto) 1.3 1.0-4.8 K/uL Monocytes # (Auto) 0.8 0.1-1.0 K/uL Eosinophils # (Auto) 0.01 0.00-0.70 K/uL Basophils # (Auto) 0.01 0.00-0.20 K/uL Absolute Immature Granulocyte (auto 0.03 0-1 K/uL Nucleated Red Blood Cells 0.0 0.0-0.19 % Sodium Level 140 136-145 mmol/L Chloride Level 100 L 101-111 mmol/L Carbon Dioxide Level 30 21-32 mmol/L Blood Urea Nitrogen 14 7-18 mg/dL Creatinine 0.5 0.5-1.0 mg/dL Glomerular Filtration Rate Calc 111 >90 mL/min Random Glucose 96 70-105 mg/dL Total Calcium 8.5 8.5-10.1 mg/dL Current Medications Medications (Trade) Dose Ordered Sig/Wendy Route PRN Reason Start Time Stop Time Status Last Admin Dose Admin Acetaminophen (TYLenol 650MG SUPPOSITORY) 650 mg Q6H PRN RC MILD PAIN (1-3) 10/10/24 18:30 11/09/24 18:29 Famotidine (Pepcid 20mg Vial) 20 mg DAILY IV 10/11/24 09:00 11/10/24 08:59 10/15/24 11:02 20 MG Hydralazine HCl (APRESOLine 20MG INJ) 10 mg Q6H PRN IV For:SBP above 160;DBP above 90 10/10/24 18:30 11/09/24 18:29 Ketorolac Tromethamine (toRADol) 15 mg Q6H PRN IV MODERATE PAIN (4-6) 10/11/24 13:30 10/16/24 13:29 10/15/24 11:03 15 MG Lactated Ringer's 1,000 ml @ 75 mls/hr [id number] IV 10/10/24 18:30 11/09/24 18:29 10/15/24 11:22 75 MLS/HR Magnesium Sulfate 50 ml @ 0 mls/hr PROTOCOL IV 10/12/24 08:00 11/11/24 07:59 10/15/24 11:03 25 MLS/HR Magnesium Sulfate 50 ml @ 0 mls/hr PROTOCOL PRN IV MAGNESIUM PROTOCOL 10/14/24 10:30 10/14/24 10:14 DC Metoclopramide HCl (regLAN 10MG IV) 5 mg TIDAC PRN IVP nausea 10/12/24 09:00 11/11/24 08:59 10/12/24 12:12 5 MG Metoprolol Tartrate (loprESSOR) 5 mg Q4H PRN IV INCREASED HEART RATE 10/14/24 11:30 10/14/24 11:32 DC Morphine Sulfate (morPHINE 2MG SYG) 2 mg Q4H PRN IVP SEVERE PAIN (7-10) 10/11/24 09:30 10/11/24 14:10 DC 10/11/24 09:42 2 MG Morphine Sulfate (morPHINE 4MG SYG) 2 mg Q4H PRN IVP SEVERE PAIN (7-10) 10/10/24 18:30 10/11/24 09:23 DC 10/11/24 02:24 2 MG Ondansetron HCl (zoFRAN 4MG INJ) 4 mg Q6H PRN IV NAUSEA/VOMITING 10/10/24 18:30 11/09/24 18:29 10/15/24 11:02 4 MG Potassium Chloride 100 ml @ 50 mls/hr AD PRN IV POTASSIUM PROTOCOL 10/13/24 05:30 11/12/24 05:29 10/14/24 19:30 50 MLS/HR Potassium Chloride 100 ml @ 50 mls/hr AD PRN IV POTASSIUM PROTOCOL 10/14/24 10:30 10/14/24 10:14 DC Promethazine HCl (Phenergan) 25 mg Q6H PRN IM NAUSEA/VOMITING 10/11/24 13:00 10/12/24 08:47 DC 10/12/24 00:21 25 MG DIAGNOSTICS / RADIOLOGY: [ ] ASSESSMENT: [Small-bowel obstruction by CT abdomen and pelvis, POA ] Leukocytosis, with left shift, POA Elevated alkaline phosphatase, POA Hyperglycemia, POA PLAN: Continue with supportive care Patient will continue with clear liquid diet until surgery advance We will follow up with small bowel through C/w IVF with LR 75 ml/hr We will continue to monitor electrolytes and replete as necessary Continue with antiemetics as needed Further orders to follow as needed We will repeat labs tomorrow Continue with GI and DVT prophylaxis Case discussed with Dr. Ugalde, above plan was formulated ] ATTESTATION BY PHYSICIAN I have seen and examined the patient. I reviewed the documentation, medical decision making, and treatment plan as noted by the mid-level provider above. I agree with the findings and plan of care. IRENE UGALDE MD, [facility] Oct 15, 2024 12:36
--- NOTE | 2024-10-15 15:29 | HMCIMG ---
SM BOWEL SERIES REASON: sbo COMPARISON: None TECHNIQUE: Serial images are obtained following administration of barium. Hand Cigar Making Supervisor view was obtained as well. FINDINGS: Hand Cigar Making Supervisor shows moderately distended proximal and mid small bowel loops. Contrast outlines the opacified proximal and mid small bowel loops consistent with at least a partial mechanical obstruction. There is passage of contrast into distal small bowel loops in the colon but 6 hour image, however there is persistent moderate retention of barium in proximal and mid small bowel loops. IMPRESSION: 1. Findings appear consistent with a high-grade partial mechanical small bowel obstruction in the mid small bowel.
[2024-10-15] MEDS: ketOROlac 15MG/ML VIAL (15MG/ML) IV PRN (16:05)
[2024-10-16] VITALS (8 sets, daily range): BP systolic 132–153; BP diastolic 65–82; PULSE 74–86; RESP 16–20; TEMP 97.8–99; O2SAT 98
--- NOTE | 2024-10-16 03:08 | NUR ---
nursing pm note patient alert and oriented times person and place. mother at bedside. plan of care discussed with them and they verbalized understanding. Patient is ambulatory with walker and with assistance to the restroom. she showered tonight. She has intermittent abdominal pain relieved by toradol. she has slept about 7 hours tonight. door open, call light within reach, bed alarm on, 2 side rails up. will continue to monitor patient.
[2024-10-16 05:00] LABS: HEMATOCRIT 36.2 % (36-48); MEAN CORPUSCULAR HEMOGLOBIN 30.3 pg (27.0-33.0); MEAN CORPUSCULAR HGB CONC 33.7 g/dL (32.0-36.0); MEAN CORPUSCULAR VOLUME 89.8 fL (79-99); RED BLOOD CELL COUNT(AUTO) 4.03 MIL/uL (4.00-5.50); RED CELL DISTRIBUTION WIDTH 12.9 % (11.0-15.5); WHITE BLOOD COUNT (AUTO) 8.4 K/uL (4.8-10.8)
[2024-10-16 05:20] LABS: CREATININE 0.5 mg/dL (0.5-1.0); MAGNESIUM 1.8 mg/dL (1.80-2.40); POTASSIUM 3.7 mmol/L (3.5-5.1)
[2024-10-16] MEDS ORDERED: PoTASSium chl 10% ELIXIR 20MEQ 20 MEQ/15 ML UDCUP PO PRN (05:30)
[2024-10-16] MEDS: PoTASSium chloRIDE 20MEQ ER 20 MEQ ERTAB PO PRN (05:57)
--- NOTE | 2024-10-16 11:17 | PN ---
Patient is being followed for a small bowel obstruction. Apparently patient had a large bowel movement a couple of days ago and now she has watery bowel movements. Abdomen is benign. Patient never had a NG tube because she refuses. Small-bowel follow-through was order in his shows a partial obstruction in the mid abdomen and there is contrast going beyond that obstruction. Patient does not have any previous surgery and does not have any inguinal hernias. I have discussed with the patient that it is a little concerning the findings in his small-bowel follow-through patient will like to eat more she is hungry. We are going to let her eat and told her that the if symptoms recur when she started having nausea and vomiting sodium may be indicated for the possibility of a congenital band. Patient understood and we will give her a trial of food and if she tolerates she could just be discharged from the hospital. Vitals/Labs Vital Signs Date Time Temp Pulse Resp B/P (MAP) Pulse Ox O2 Delivery O2 Flow Rate FiO2 10/16/24 09:05 98 Room Air* 0 21 10/16/24 08:00 98.6 86 17 142/82 Laboratory Tests 10/16/24 04:27 JOSÉ MIGUEL ARREDONDO MD Oct 16, 2024 11:17
--- NOTE | 2024-10-16 12:51 | PN ---
[facility] PROGRESS NOTE Date of Service: Oct 16, 2024 Time of Service: 12:46 SUBJECTIVE: 56-year-old female admitted for small-bowel obstruction noted on CT abdomen and pelvis. Patient was evaluated in the room, she is still feeling nauseated. CT abdomen and pelvis repeated last night which showed partial bowel obstruction. Patient was evaluated by general surgeon yesterday who recommended small-bowel follow-through, reviewed which showed high-grade partial mechanical obstruction mid to small bowel. Patient was started with GI soft diet we will continue to follow. Today she denies nausea vomiting but still continue with diarrhea. REVIEW OF SYSTEMS CONSTITUTIONAL: Denies fevers, chills, or night sweats. No unintentional weight loss reported. NEUROLOGICAL: Denies headache, amaurosis fugax, motor weakness, sensory defic it, vertigo/spinning sensation, gait abnormalities, or tremors. ENT: No hearing loss, otalgia, otorrhea, rhinitis, rhinorrhea, hoarseness, or sore throat. CARDIOVASCULAR: Denies any exertional angina, dyspnea on exertion, orthopnea, paroxysmal nocturnal dyspnea, palpitations, life-threatening arrhythmias, claudication. PULMONARY: Denies any shortness of breath, cough, phlegm/sputum, hemoptysis, pleuritic chest pain. SLEEP: Denies morning headaches, daytime somnolence or napping. Denies difficulty falling asleep, staying asleep, waking from sleep. Denies knowledge of snoring. GASTROINTESTINAL: Denies any type of dysphagia to either liquids or solids. Denies nausea, vomiting, pyrosis, early satiety, abdominal pain, diarrhea, constipation, or changes in stool consistency or caliber. Denies coffee-ground emesis, hematemesis, hematochezia, or melanotic stools. GENITOURINARY: Denies frequency, urgency, nocturia, hematuria or incontinence (Storage/Irritative symptoms.) Low urinary stream, straining to void, urinary intermittency or hesitancy, splitting of the voiding stream, terminal dribbling. ENDOCRINOLOGIC: Denies polyuria, polydipsia, polyphagia or heat/cold intolerances. HEMATOLOGIC: Denies thrombophilia/previous clots, or coagulopathy/bleeding disorders. ONCOLOGIC: Denies personal history of malignancy. DERMATOLOGIC: Denies rashes or pruritus. PSYCHIATRIC: Denies any suicidal or homicidal ideation. Denies hallucinations. PHYSICAL EXAM GENERAL APPEARANCE: The patient is awake, alert, and oriented, in no acute cardiopulmonary distress. NEUROLOGICAL: Cranial nerves II-XII grossly intact. Motor is 5/5 in bilateral upper and lower extremities proximal to distal. No sensory deficits. HEENT: Face is symmetric. Pupils are equal and reactive. Extraocular movements are intact. NECK: Supple. No JVD. No thyromegaly. No submental, submandibular, pre- /postauricular, occipital or supraclavicular lymphadenopathy. CHEST: Normal chest expansion. No Telemetry. LUNGS: Absence of any rales, rhonchi or any wheezing. CARDIOVASCULAR: Regular. S1 and S2 normal. No appreciable rubs, murmurs or gallops. ABDOMEN: Soft, nontender, and nondistended. There is no rebound, voluntary guarding, or rigidity. : Deferred. No Powers. EXTREMITIES: Non-edematous and not cyanotic. No clubbing. Good capillary refill. SKIN: No skin breakdown. Vital Signs (last 8hr) Date Time Temp Pulse Resp B/P (MAP) Pulse Ox O2 Delivery O2 Flow Rate FiO2 10/16/24 12:00 98.4 85 17 135/66 99 Room Air 10/16/24 09:05 98 Room Air* 0 21 10/16/24 08:00 98.6 86 17 142/82 98 Room Air LABS: Laboratory: Test 10/16/24 04:27 Range/Units White Blood Count 8.4 4.8-10.8 K/uL Red Blood Count 4.03 4.00-5.50 MIL/uL Hemoglobin 12.2 12.0-16.0 g/dL Hematocrit 36.2 36-48 % Mean Corpuscular Volume 89.8 79-99 fL Mean Corpuscular Hemoglobin 30.3 27.0-33.0 pg Mean Corpuscular Hemoglobin Concent 33.7 32.0-36.0 g/dL Red Cell Distribution Width 12.9 11.0-15.5 % Platelet Count 215 130-400 K/uL Mean Platelet Volume 10.1 7.5-10.5 fL Nucleated Red Blood Cells 0.0 0.0-0.19 % Sodium Level 139 136-145 mmol/L Potassium Level 3.7 3.5-5.1 mmol/L Chloride Level 101 101-111 mmol/L Carbon Dioxide Level 28 21-32 mmol/L Blood Urea Nitrogen 11 7-18 mg/dL Creatinine 0.5 0.5-1.0 mg/dL Glomerular Filtration Rate Calc 111 >90 mL/min Random Glucose 74 70-105 mg/dL Total Calcium 7.9 L 8.5-10.1 mg/dL Magnesium Level 1.80 1.80-2.40 mg/dL Current Medications Medications (Trade) Dose Ordered Sig/Wendy Route PRN Reason Start Time Stop Time Status Last Admin Dose Admin Acetaminophen (TYLenol 650MG SUPPOSITORY) 650 mg Q6H PRN RC MILD PAIN (1-3) 10/10/24 18:30 11/09/24 18:29 Famotidine (Pepcid 20mg Vial) 20 mg DAILY IV 10/11/24 09:00 11/10/24 08:59 10/16/24 08:39 20 MG Hydralazine HCl (APRESOLine 20MG INJ) 10 mg Q6H PRN IV For:SBP above 160;DBP above 90 10/10/24 18:30 11/09/24 18:29 Ketorolac Tromethamine (toRADol) 15 mg Q6H PRN IV MODERATE PAIN (4-6) 10/11/24 13:30 10/15/24 15:35 DC 10/15/24 11:03 15 MG Ketorolac Tromethamine (toRADol) 30 mg Q8H PRN IV MODERATE PAIN (4-6) 10/15/24 16:00 10/16/24 13:29 10/16/24 00:06 30 MG Lactated Ringer's 1,000 ml @ 75 mls/hr [id number] IV 10/10/24 18:30 11/09/24 18:29 10/16/24 05:57 75 MLS/HR Magnesium Sulfate 50 ml @ 0 mls/hr PROTOCOL IV 10/12/24 08:00 11/11/24 07:59 10/16/24 05:57 15 MLS/HR Magnesium Sulfate 50 ml @ 0 mls/hr PROTOCOL PRN IV MAGNESIUM PROTOCOL 10/14/24 10:30 10/14/24 10:14 DC Metoclopramide HCl (regLAN 10MG IV) 5 mg TIDAC PRN IVP nausea 10/12/24 09:00 11/11/24 08:59 10/12/24 12:12 5 MG Metoprolol Tartrate (loprESSOR) 5 mg Q4H PRN IV INCREASED HEART RATE 10/14/24 11:30 10/14/24 11:32 DC Morphine Sulfate (morPHINE 2MG SYG) 2 mg Q4H PRN IVP SEVERE PAIN (7-10) 10/11/24 09:30 10/11/24 14:10 DC 10/11/24 09:42 2 MG Morphine Sulfate (morPHINE 4MG SYG) 2 mg Q4H PRN IVP SEVERE PAIN (7-10) 10/10/24 18:30 10/11/24 09:23 DC 10/11/24 02:24 2 MG Ondansetron HCl (zoFRAN 4MG INJ) 4 mg Q6H PRN IV NAUSEA/VOMITING 10/10/24 18:30 11/09/24 18:29 10/15/24 11:02 4 MG Potassium Chloride 100 ml @ 50 mls/hr AD PRN IV POTASSIUM PROTOCOL 10/13/24 05:30 11/12/24 05:29 10/14/24 19:30 50 MLS/HR Potassium Chloride 100 ml @ 50 mls/hr AD PRN IV POTASSIUM PROTOCOL 10/14/24 10:30 10/14/24 10:14 DC Potassium Chloride (K-Dur/Klor-Con 20meq) 20 meq AD PRN PO POTASSIUM PROTOCOL 10/16/24 05:30 11/15/24 05:29 10/16/24 08:39 20 MEQ Potassium Chloride (KCl 10% Elixir 20meq/15ml) 20 meq AD PRN PO POTASSIUM PROTOCOL 10/16/24 05:30 11/15/24 05:29 Promethazine HCl (Phenergan) 25 mg Q6H PRN IM NAUSEA/VOMITING 10/11/24 13:00 10/12/24 08:47 DC 10/12/24 00:21 25 MG DIAGNOSTICS / RADIOLOGY: [ ] ASSESSMENT: [Small-bowel obstruction by CT abdomen and pelvis, POA ] Leukocytosis, with left shift, POA Elevated alkaline phosphatase, POA Hyperglycemia, POA High-grade mechanical obstruction by small-bowel follow-through PLAN: Continue with supportive care Appreciate recommendations from general surgeon, we will continue to follow C/w IVF with LR 75 ml/hr We will continue to monitor electrolytes and replete as necessary Continue with antiemetics as needed Further orders to follow as needed We will repeat labs tomorrow Continue with GI and DVT prophylaxis Case discussed with Dr. Ugalde, above plan was formulated ] ATTESTATION BY PHYSICIAN I have seen and examined the patient. I reviewed the documentation, medical decision making, and treatment plan as noted by the mid-level provider above. I agree with the findings and plan of care. IRENE UGALDE MD, [facility] Oct 16, 2024 12:51
[2024-10-17] VITALS: BP 142/78; PULSE 78; RESP 16; TEMP 98.3
--- NOTE | 2024-10-17 00:43 | NUR ---
nursing pm note patient alert and oriented times 3. mother at bedside. plan of care discussed with them and they verbalized understanding. Patient does not want to get up to the toilet tonight. She is voiding on a brief. She has no nausea or vomiting tonight, but is only drinking clears tonight. She has slept about 6 hours tonight. door open, bed alarm on, 2 side rails up. will continue to monitor patient.
[2024-10-17 04:00] VITALS: BP 128/80; PULSE 83; RESP 16; TEMP 98.4
[2024-10-17 08:07] VITALS: BP 140/81; PULSE 81; RESP 18; TEMP 98.4
[2024-10-17 08:11] VITALS: O2SAT 98
[2024-10-17] MEDS ORDERED: MAGNESIUM 2GM PREMIX 50ML 50 ML IV SCH (09:30)
[2024-10-17 11:49] VITALS: BP 141/73; PULSE 84; RESP 18; TEMP 98.4
--- NOTE | 2024-10-17 14:00 | DS ---
Discharge Summary Hospital Course Summary: This is a 54-year-old female admitted due to complaint of abdominal pain, aggravated by eating and drinking. Prior to hospital admission, patient had episodes of nausea and vomiting x5 times. In the emergency department she had leukocytosis, CT abdomen and pelvis showed small bowel obstruction but she refu ses NG tube. Patient was monitored and battery of tests was done including KUB on 10/11/2024 which showed nonspecific bowel gas pattern, abdomen is nearly gasless. Patient was kept NPO, general surgeon has been consulted. We also ordered gastric emptying studies to rule out gastroparesis but it was unremarkable. A CT abdomen and pelvis was done which showed dilated proximal small bowel loops with a transition zone, there is passage of contrast into distal normal caliber small bowel loops, findings are consistent with partial obstruction. Then on 10/15/2023 small-bowel series showed findings appear consistent with high-grade partial mechanical small bowel obstruction in the mid small bowel. Dr. Leonardo general surgeon reviewed the films who indicated patient had a large bowel movement a couple of days ago and now she has watery bowel movements, her abdomen is benign. Since patient did not want any NG tube as she refuses. A small bowel follow-through ordered and it shows a partial obstruction in the mid abdomen and there is a consult going beyond that obstruction. The patient does not have any previous surgery and does not have any inguinal hernias. He discussed with the patient that it is a little concerning the findings in the small-bowel follow-through but patient will likely eat more she is hungry. Patient continued with diet and did not have any issues. Dr. Mcgraw indicated that if she started having issues that possible off a congenital band but patient did not have any issues after soft diet was started hence patient was cleared from the hospitalist standpoint and can be discharged once general surgeon clears. Assistant County Engineer(s): Dr. Dominick Leonardo-general surgeon Procedure(s): [facility] [address] [place] [id number] IMAGING REPORT Signed PATIENT: EVA BUENROSTRO MR#: [id number] : 1970 SEX: F AGE: 54 LOCATION: [facility] ORDER 2300 STATUS: ADM IN REPORT#: [id number] SERVICE 0600 REASON: sbo ORDERING PHYSICIAN: ENDER FELDMAN MD PROCEDURE: SBFT - SM BOWEL SERIES SM BOWEL SERIES REASON: sbo COMPARISON: None TECHNIQUE: Serial images are obtained following administration of barium. Carburetor Rebuilder view was obtained as well. FINDINGS: Carburetor Rebuilder shows moderately distended proximal and mid small bowel loops. Contrast outlines the opacified proximal and mid small bowel loops consistent with at least a partial mechanical obstruction. There is passage of contrast into distal small bowel loops in the colon but 6 hour image, however there is persistent moderate retention of barium in proximal and mid small bowel loops. IMPRESSION: 1. Findings appear consistent with a high-grade partial mechanical small bowel obstruction in the mid small bowel. DICTATED BY: SHREYA SALAZAR MD DATE: 10/15/24 152 ELECTRONICALLY SIGNED BY: SHREYA SALAZAR MD DATE: 10/15/[address] [id number] IMAGING REPORT Signed PATIENT: EVA BUENROSTRO MR#: [id number] : 1970 SEX: F AGE: 54 LOCATION: [facility] ORDER 13 STATUS: ADM IN REPORT#: [id number] SERVICE 11 REASON: ILIUS VS OBSTRUCTION ORDERING PHYSICIAN: RAI LEMUS DO PROCEDURE: ABD PEL WO - CT ABDOMEN/PELVIS W/O CONTRAST CT ABDOMEN/PELVIS W/O CONTRAST REASON: ILIUS VS OBSTRUCTION COMPARISON: 10/10/2024 TECHNIQUE: Images are obtained from lung bases to symphysis pubis following oral contrast only. FINDINGS: Lung bases are clear. There are no focal liver lesions. There are normal-appearing kidneys.. Spleen and pancreas appear unremarkable. The gallbladder appears normal as well. There is moderate distention of proximal small bowel loops consistent with a component of partial obstruction. There is passage of contrast distally to normal caliber distal small bowel loops. Distal small bowel and colon appear decompressed. The appendix was visualized and appears unremarkable. There is no evidence of free fluid or intraperitoneal air. There are no focal fluid collections. Aorta and retroperitoneum appear normal. The uterus appears diffusely enlarged at 8.4 x 10.6 x 9.2 cm probably fibroids, pelvic ultrasound would be helpful to confirm. Pelvic soft tissues appear otherwise unremarkable. The anterior abdominal wall is intact. Osseous structures appear unremarkable. IMPRESSION: 1. Dilated proximal small bowel loops with a transition zone, there is passage of contrast into the distal normal caliber small bowel loops, findings are consistent with a partial obstruction. 2. Enlarged uterus, probably fibroids, ultrasound would be helpful to confirm, unchanged. CT was performed with one or more following dose reduction techniques: automated exposure control, adjustment of the mA and kv according to patient's size, or use of a iterative reconstruction technique. DICTATED BY: SHREYA SALAZAR MD DATE: 10/14/24854 ELECTRONICALLY SIGNED BY: SHREYA SALAZAR MD DATE: 10/14/[address] [place] [address] [place] [address] IMAGING REPORT Signed PATIENT: EVA BUENROSTRO MR#: [id number] : 1970 SEX: F AGE: 54 LOCATION: [facility] ORDER 4 STATUS: ADM IN REPORT#: [id number] SERVICE 3 REASON: R/O GASTROPARESIS ORDERING PHYSICIAN: VINCE CORTES PROCEDURE: GASTEMP - NM GASTRIC EMPTYING STUDY NUCLEAR MEDICINE GASTRIC EMPTYING STUDY INDICATION: Obstruction; gastroparesis evaluation RADIOPHARMACEUTICAL: Examination was performed with hard boiled egg, with 1.0 mCi 99 M technetium labeled sulfur colloid within. FINDINGS: Region of interest curves were drawn, and qualitatively, good gastric emptying noted with most of the radiotracer out of the stomach by the 90 minute birgit. 50% emptying occurred at 66 minutes. IMPRESSION: Normal gastric emptying scan. DICTATED BY: DMITRI ANGLIN MD DATE: 10/13/24943 ELECTRONICALLY SIGNED BY: DMITRI ANGLIN MD DATE: 10/13/24948 [place] [address] [id number] IMAGING REPORT Signed PATIENT: EVA BUENROSTRO MR#: [id number] : 1970 SEX: F AGE: 54 LOCATION: [facility] ORDER 1300 STATUS: ADM IN REPORT#: [id number] SERVICE 1258 REASON: r/o sbo ORDERING PHYSICIAN: VINCE CORTES PROCEDURE: ABD 1VW - ABD 1VW ABD 1VW REASON: r/o sbo FINDINGS: Single image of the abdomen was obtained. Abdomen is nearly gasless. There are a few moderately dilated small bowel loops present superiorly. Colon appears decompressed. IMPRESSION: 1. Nonspecific bowel gas pattern. Abdomen is nearly gasless. DICTATED BY: SHREYA SALAZAR MD DATE: 10/11/24 1445 ELECTRONICALLY SIGNED BY: SHREYA SALAZAR MD DATE: 10/11/24 1453 [facility] [address] [place] [address] [id number] IMAGING REPORT Signed PATIENT: EVA BUENROSTRO MR#: [id number] : 1970 SEX: F AGE: 54 LOCATION: [facility] ORDER 1812 STATUS: ADM IN REPORT#: [id number] SERVICE 1807 REASON: pre procedural ORDERING PHYSICIAN: AYESHA WHITING CUSTOMER ENERGY SPECIALIST PROCEDURE: CXR1VW - CHEST 1VW Exam Type: CHEST 1VW Clinical Information: pre procedural Comparison: None Findings: The lungs are clear of infiltrates. The heart is normal in size. The bony and soft tissue structures of the chest are unremarkable. Impression: Clear lungs. DICTATED BY: TRAN FIGUEROA MD DATE: 10/10/24 1858 ELECTRONICALLY SIGNED BY: TRAN FIGUEROA MD DATE: 10/10/24 1900 [facility] [address] [place] [address] [id number] IMAGING REPORT Signed PATIENT: EVA BUENROSTRO MR#: [id number] : 1970 SEX: F AGE: 54 LOCATION: [facility] ORDER 1538 STATUS: REG ER REPORT#: [id number] SERVICE 36 REASON: Abdominal pain ORDERING PHYSICIAN: MOR LOWERY MD PROCEDURE: ABD PEL WO - CT ABDOMEN/PELVIS W/O CONTRAST Exam Type: CT ABDOMEN/PELVIS W/O CONTRAST Clinical Information: Abdominal pain Comparison: None CT Dose Index (CTDI): 10.20 mGy Dose Length Product (DLP): 530.00 total mGy-cm PROTOCOL: Routine noncontrast helical scanning of the abdomen and pelvis was performed at 5mm collimation. Findings: No evidence of nephro or ureterolithiasis is found. No hydronephrosis or ureteral dilatation is seen. The lung bases are clear. The stomach is unremarkable. It shows no wall thickening. No gross ulceration is seen. It is not overly distended. There are no surrounding inflammatory changes. No wall lesions are identified to suggest cancer. The spleen is unremarkable. It is not enlarged. The pancreas shows normal anatomy. It is not fatty replaced. It shows no lesions. The pancreatic duct is not dilated. The gallbladder is unremarkable. It shows no cholelithiasis. The gallbladder wall is normal in thickness. There is no pericholecystic fluid. The is no acute or chronic inflammation noted. The adrenal glands are unremarkable. There is no enlargement. No lesions are noted. The liver is unremarkable. It shows no focal masses. The appendix is unremarkable. It shows no evidence of inflammation. No appendicolith is seen. Dilatation of the jejunum with small caliber of the ileum and these findings are consistent with jejunoileal level obstruction. The colon is unremarkable. The urinary bladder is unremarkable. There is no wall thickening to suggest tumor or inflammation. There are no intraluminal calculi. There are no diverticula. There is no evidence of chronic bladder outlet obstruction. There is no evidence of urinary bladder distention to suggest urinary retention. The other pelvic structures are unremarkable. The bony and vascular structures are unremarkable for the patient's age. IMPRESSION: Small bowel obstruction. This study was performed using dose reduction techniques to include automated exposure control and/or adjustment of the mA and/or kV according to patient size. DICTATED BY: TRAN FIGUEROA MD DATE: 10/10/241622 ELECTRONICALLY SIGNED BY: TRAN FIGUEROA MD DATE: 10/10/241627 Assessment/Plan: Discharge diagnoses [Small-bowel obstruction by CT abdomen and pelvis, POA ] Leukocytosis, with left shift, POA Elevated alkaline phosphatase, POA Hyperglycemia, POA High-grade mechanical obstruction by small-bowel follow-through Admitting diagnoses Small-bowel obstruction, POA, by CT on 10/10/2024 Leukocytosis, POA Discharge Instructions: Follow up with PCP in 2-3 days Follow-up with general surgeon in one week Home Medications: Discontinued Scripts Cetirizine HCl (Zyrtec Syrup 1 mg/1 ml) 1 Mg/1 Ml Solution, 10 MG PO BID for 5 Days, #120 ML Prov:VARUN CONN 05/20/22 Famotidine (Pepcid) 20 Mg Tablet, 20 MG PO BID for 15 Days, #30 TAB Prov:VARUN CONN 05/20/22 Prednisone (Prednisone) 20 Mg Tablet, 2 TAB PO AD for 5 Days, #10 TAB 0 Refills TAKE 1 TAB BY MOUTH THREE TIMES PER DAY X3 DAYS, THEN TAKE 1 TAB BY MOUTH TWICE A DAY X2 DAYS, THEN TAKE 1 TAB BY MOUTH ONCE A DAY X1 DAY. Prov:VARUN CONN 05/20/22 Time spent arranging discharge: 31-60 minutes ATTESTATION BY PHYSICIAN I have seen and examined the patient. I reviewed the documentation, medical decision making, and treatment plan as noted by the mid-level provider above. I agree with the findings and plan of care. IRENE UGALDE MD, JANICE B AGHALEIGH Oct 17, 2024 14:00
--- NOTE | 2024-10-17 16:07 | NUR ---
D/C INSTRUCTIONS GIVEN; VERBALLY AND WRITTEN, D/C PIV WITHOUT REDNESS, SWELLING OR TENDERNESS TO SITE, ESCORTED OUT VIA WC, NO DISCOMFORT NOTED.
[2024-10-18] MEDS ORDERED: ONDA-243 PO (15:04)
== END 2024-10-17 16:10 | disposition home or self-care (01) | DRG 390 ==
LOC: EDH 15:27 → EDHIP 18:07 → 4CH 19:05
PROVIDERS: ADMIT Internal Medicine; ATTEND Internal Medicine
DX: K56.600 Partial intestinal obstruction, unspecified as to cause (principal); D72.829 Elevated white blood cell count, unspecified; R74.8 Abnormal levels of other serum enzymes; R73.9 Hyperglycemia, unspecified; E66.9 Obesity, unspecified; Z53.20 Procedure and treatment not carried out because of patient's decision for unspecified reasons; Z88.0 Allergy status to penicillin; Z68.33 Body mass index [BMI] 33.0-33.9, adult; D25.9 Leiomyoma of uterus, unspecified
CPT/HCPCS: 36415; 71045; 74018; 74176; 74250; 78264; 80048; 80053; 80076; 81001; 83036; 83605; 83690; 83735; 84100; 84132; 84145; 84484; 85025; 85027; 85610; 85730; 86850; 86900; 86901; 87040; 87086; 93005; 96375; 99285; A9541; G0378; J1885; J2270; J2405; J2550; J2765; J3475; J3480; J3490; Q9963

== ENCOUNTER 2024-10-18 10:14 | Emergency (ER) | payer BC ==
[~2024-10-18] VITALS: Ht 162.6 cm; Wt 88.0 kg
[2024-10-18 10:15] VITALS: TEMP 98.6
[2024-10-18] MEDS: FAMOTIDINE 20MG VIAL IV STA (11:18)
[2024-10-18] MEDS: ondanSETRON 4MG INJ IVP STA (11:18)
[2024-10-18] MEDS: 0.9%NACL 1000ML 1,000 ML IV STA (11:18)
[2024-10-18 11:20] LABS: BASOPHILS # (AUTO) 0.02 K/uL (0.00-0.20); BASOPHILS % (AUTO) 0.2 % (0.0-5.0); EOSINOPHILS # (AUTO) 0.02 K/uL (0.00-0.70); EOSINOPHILS % (AUTO) 0.2 % (0.0-8.0); HEMATOCRIT 41.8 % (36-48); IMMATURE GRANULOCYTE ABSOLUTE 0.05 K/uL (0-1); LYMPHOCYTES # (AUTO) 2.1 K/uL (1.0-4.8); LYMPHOCYTES % (AUTO) 24.6 % (21.0-51.0); MEAN CORPUSCULAR HEMOGLOBIN 29.8 pg (27.0-33.0); MEAN CORPUSCULAR HGB CONC 33.7 g/dL (32.0-36.0); MEAN CORPUSCULAR VOLUME 88.4 fL (79-99); MONOCYTES # (AUTO) 0.6 K/uL (0.1-1.0); MONOCYTES % (AUTO) 6.9 % (3.0-13.0); NEUTROPHILS # (AUTO) 5.8 K/uL (1.8-7.7); NEUTROPHILS % (AUTO) 67.5 % (40.0-77.0); PLATELET COUNT (AUTO) 252 K/uL (130-400); RED BLOOD CELL COUNT(AUTO) 4.73 MIL/uL (4.00-5.50); RED CELL DISTRIBUTION WIDTH 13.3 % (11.0-15.5); WHITE BLOOD COUNT (AUTO) 8.6 K/uL (4.8-10.8)
[2024-10-18 11:21] LABS: CREATININE 0.5 mg/dL (0.5-1.0); POTASSIUM 3.8 mmol/L (3.5-5.1)
[2024-10-18 11:26] LABS: ALBUMIN 2.9 g/dL (3.5-5.0); BILIRUBIN,TOTAL 0.4 mg/dL (0.2-1.0); TOTAL PROTEIN, SERUM 6.4 g/dL (6.0-8.3)
--- NOTE | 2024-10-18 11:29 | ERN ---
ED Note History of Present Illness Stated Complaint: N/V/D ONSET 399 TODAY Chief Complaint: Nausea,Vomiting,Diarrhea Time Seen by MD: 10:17 Time Seen by Midlevel: 10:20 Dictation: 54-year-old female coming in complaining of nausea started at 4:00 a.m. today. Patient was recently discharged last night from here and she was admitted for a small-bowel obstruction. Patient denies having any abdominal pain, and states she has only had nausea and vomiting at four. States she got home from the hospital eight and egg and started with the symptoms at four in the morning. Patient states he also has diarrhea but has a diarrhea has been going on since before she was admitted to the hospital. Allergies: Coded Allergies: Iodine and Iodide Containing Produc (Unverified Allergy, Unknown, 03/24/20) Penicillins (Unverified Allergy, Unknown, 03/21/19) Home Meds Active Scripts Ondansetron (Ondansetron Odt) 4 Mg Tab.rapdis, 4 MG PO Q6HPRN PRN for nausea for 3 Days, #12 TAB 0 Refills Prov:CONCHA SPAULDING [employer]ACTICAL [employer] PROFESSOR 10/18/24 Past Medical History Past Medical History: Other Additional Past Medical Hx: Obesity, SBO Surgical History: None Family History: Negative Social History: Negative Review of System Dictation Constitutional: Negative for fever,chills, and weight loss Eyes: Negative for injury, pain,redness, and discharge ENT: Negative for injury,pain or swelling Cardiovascular: Negative for chest pain, palpitations, and edema Respiratory: Negative for shortness of breath, cough, and wheezing, Abdomen/GI: Negative for abdominal pain, complaining of nausea, vomiting and diarrhea nonbloody Back: Negative for injury and pain : Negative for injury, bleeding and discharge MS/Extremity: Negative for injury and deformity Skin: Negative for rash, and discoloration Neuro: Negative for headache, weakness, numbness, tingling, and seizure Psych: Negative for suicide ideation, homicidal ideation, and hallucinations Review of Systems: was completed Initial Vital Sign VS Vital Signs Date Time Temp Pulse Resp B/P (MAP) Pulse Ox O2 Delivery O2 Flow Rate FiO2 10/18/24 10:15 98.6 101 16 154/105 96 Room Air 0 10/18/24 14:50 21 Physical Exam Dictation General: awake, alert, NAD Head/Face: Normocephalic, atraumatic Eyes: PERRL, EOMI, vision at baseline ENT: oral cavity clear, TMs clear, no signs of infection Neck: Trachea midline, supple, no nuchal rigidity Cardiovascular: RRR, normal S1/S2, No MRGs, no JVD Respiratory: CTAB, no respiratory distress, No rales or wheezes Abdomen: Soft, non-tender, non-distended, normal bowel sounds, no guarding or rebound. Skin: Warm, dry, normal turgor, no rash MS/Extremity: Pulses equal, no cyanosis, neurovascular intact, FROM Neuro: COAx4, GCS 15, strength 5/5, CN 2-12 intact, normal cerebellar exam, normal gait, Psych: Normal behavior, mood, and affect normal Results (Laboratory/Radiology) Laboratory/Radiology Laboratory Tests Test 10/18/24 11:04 White Blood Count 8.6 K/uL (4.8-10.8) Red Blood Count 4.73 MIL/uL (4.00-5.50) Hemoglobin 14.1 g/dL (12.0-16.0) Hematocrit 41.8 % (36-48) Mean Corpuscular Volume 88.4 fL (79-99) Mean Corpuscular Hemoglobin 29.8 pg (27.0-33.0) Mean Corpuscular Hemoglobin Concent 33.7 g/dL (32.0-36.0) Red Cell Distribution Width 13.3 % (11.0-15.5) Platelet Count 252 K/uL (130-400) Mean Platelet Volume 9.9 fL (7.5-10.5) Immature Granulocyte % (Auto) 0.6 % (0-1) Neutrophils (%) (Auto) 67.5 % (40.0-77.0) Lymphocytes (%) (Auto) 24.6 % (21.0-51.0) Monocytes (%) (Auto) 6.9 % (3.0-13.0) Eosinophils (%) (Auto) 0.2 % (0.0-8.0) Basophils (%) (Auto) 0.2 % (0.0-5.0) Neutrophils # (Auto) 5.8 K/uL (1.8-7.7) Lymphocytes # (Auto) 2.1 K/uL (1.0-4.8) Monocytes # (Auto) 0.6 K/uL (0.1-1.0) Eosinophils # (Auto) 0.02 K/uL (0.00-0.70) Basophils # (Auto) 0.02 K/uL (0.00-0.20) Absolute Immature Granulocyte (auto 0.05 K/uL (0-1) Nucleated Red Blood Cells 0.0 % (0.0-0.19) Sodium Level 140 mmol/L (136-145) Potassium Level 3.8 mmol/L (3.5-5.1) Chloride Level 103 mmol/L (101-111) Carbon Dioxide Level 31 mmol/L (21-32) Blood Urea Nitrogen 4 mg/dL (7-18) L Creatinine 0.5 mg/dL (0.5-1.0) Glomerular Filtration Rate Calc 111 mL/min (>90) Random Glucose 101 mg/dL (70-105) Total Calcium 8.7 mg/dL (8.5-10.1) Total Bilirubin 0.4 mg/dL (0.2-1.0) Aspartate Amino Transf (AST/SGOT) 146 U/L (10-37) H Alanine Aminotransferase (ALT/SGPT) 177 U/L (12-78) H Alkaline Phosphatase 150 U/L (50-136) H Total Protein 6.4 g/dL (6.0-8.3) Albumin 2.9 g/dL (3.5-5.0) L Lipase 89 U/L (16-77) H Labs Reviewed?: Yes Ultrasound Comment: [address] [id number] IMAGING REPORT Signed PATIENT: EVA BUENROSTRO MR#: [id number] : 1970 SEX: F AGE: 54 LOCATION: [facility] ORDER 01 STATUS: REG ER REPORT#: [id number] SERVICE 01 REASON: abnormal liver enzymes ORDERING PHYSICIAN: CONCHA SPAULDING NP PROCEDURE: ABDRUQLTD - US ABDOMINAL RUQ\LTD US ABDOMINAL RUQ\E\LTD HISTORY: Elevated liver enzymes COMPARISON: None TECHNIQUE: Right upper quadrant abdominal ultrasound study was performed. FINDINGS: Liver measures 15 cm. Pancreatic head is prominent measuring 3.2 cm. The visualized portion of the pancreas is within normal limits. Liver is echogenic consistent with liver parenchymal disease. No gallstone is seen. Common duct measures 3 mm. No evidence of gallbladder wall thickening is seen. Right kidney measures 9.4 x 5 x 4.3 cm. No hydronephrosis is seen of the right kidney. IMPRESSION: 1. No gallstones or ductal dilatation is seen. Prominent pancreatic head 2. No hydronephrosis is seen. DICTATED BY: ROJAS ALVAREZ MD DATE: 10/18/24 1438 ELECTRONICALLY SIGNED BY: ROJAS ALVAREZ MD DATE: 10/18/24 1442 ED Course ED Course Orders Procedure Category Date Status Time Cbc With Differential LAB 10/18/24 Complete 10:58 Comprehensive LAB 10/18/24 Complete Metabolic Panel 10:58 Ondansetron 4mg Inj PHA 10/18/24 Complete (Zofran 4mg Inj) 10:58 Famotidine 20mg Vial PHA 10/18/24 Complete (Pepcid 20mg Vial) 10:58 0.9%Nacl 1000ml (Ns PHA 10/18/24 Complete 1000ml) 10:58 Lipase LAB 10/18/24 Complete 12:01 Us Abdominal Ruq\Ltd US 10/18/24 Resulted 12:02 Current Medications Medications (Trade) Dose Ordered Sig/Wendy Route PRN Reason Start Time Stop Time Status Last Admin Dose Admin Famotidine (Pepcid 20mg Vial) 20 mg ONCE STAT IV 10/18/24 10:58 10/18/24 11:00 DC 10/18/24 11:18 Ondansetron HCl (zoFRAN 4MG INJ) 4 mg ONCE STAT IVP 10/18/24 10:58 10/18/24 11:00 DC 10/18/24 11:18 Sodium Chloride 1,000 ml @ 1,000 mls/hr Q1H STAT IV 10/18/24 10:58 10/18/24 11:57 DC 10/18/24 11:18 Vital Signs Date Time Temp Pulse Resp B/P (MAP) Pulse Ox O2 Delivery O2 Flow Rate FiO2 10/18/24 14:50 86 20 141/98 98 Room Air* 0 21 10/18/24 10:15 98.6 101 16 154/105 96 Room Air 0 Medical Decision Making MDM MDM: 54-year-old female coming in complaining of nausea started at 4:00 a.m. today. Patient was recently discharged last night from here and she was admitted for a small-bowel obstruction. Patient denies having any abdominal pain, and states she has only had nausea and vomiting at four. States she got home from the hospital eight and egg and started with the symptoms at four in the morning. PATIENT STATES SHE WAS DISCHARGED WITHOUT ANY MEDICATIONS. Patient states he also has diarrhea but has a diarrhea has been going on since before she was admitted to the hospital IN STATES SHE IS CURRENTLY ABLE TO PASS GAS. PATIENT IS A COMPLAINING OF ANY ABDOMINAL PAIN, PHYSICAL EXAM PATIENT DENIES ANY PAIN ON PALPATION TO ANY QUADRANT. NO NEED FOR A CT SCAN.CBC SHOWS NO LEUKOCYTOSIS, NO ANEMIA, NO THROMBOCYTOPENIA. CHEMISTRY SHOWS MILD TRANSAMINITIS WITH NORMAL T BILI, LIPASE MILDLY ELEVATED AT 89. HOWEVER PATIENT IS NOT COMPLAINING OF ANY ABDOMINAL PAIN OR EPIGASTRIC PAIN. ULTRASOUND OF THE RIGHT UPPER QUADRANT SHOWS NO GALLSTONES OR DUCT DILATION, PROMINENT PANCREATIC HEAD, NO HYDRONEPHROSIS SEEN. DIFFERENTIAL DIAGNOSIS: NAUSEA VOMITING MILD DEHYDRATION, CHOLECYSTITIS, PANCREATITIS RATIONALE: TESTS CONSIDERED AND ORDERED SECONDARY TO SHARED DECISION MAKING INCLUDE: PREVIOUS OUTSIDE RECORDS REVIEWED: OLD ER VISITS. RISK OF COMPLICATION AND/OR MORBIDITY OR MORTALITY OF PATIENT MANAGEMENT: NONE MEDICATIONS-PER MEDICATION RECONCILIATION NEED FOR HOSPITALIZATION: PATIENT DOES NOT MEET CRITERIA FOR HOSPITALIZATION. NEED FOR EMERGENCY MAJOR/MINOR SURGERY: NO THERE ARE NO SOCIAL CONCERNS WITH THIS PATIENT. PRESCRIPTION DRUG MANAGEMENT PRESCRIPTIONS WILL INCLUDE SYMPTOMATIC CARE PATIENT'S PRIOR EXTERNAL MEDICAL RECORDS FROM OTHER ER VISITS WERE REVIEWED BY ME INDICATED. PRIOR TESTING AND RESULTS FROM PREVIOUS VISITS WERE REVIEWED. PRIOR TESTS WERE TAKEN INTO ACCOUNT WITH MEDICAL DECISION MAKING AND RESOURCE UTILIZATION, INDEPENDENT HISTORIAN/HISTORIANS WERE USED TO OBTAIN COMPLETE MEDICAL HISTORY. I INDEPENDENTLY INTERPRETED THE TEST THAT WERE PERFORMED, RESULTS WERE REVIEWED BY ME AND CONSIDERED FINDINGS ON RADIOLOGY IF ORDERED. MEDICAL MANAGEMENT AND EXAMINATION INTERPRETATION DISCUSSIONS WERE HAD BY ME WITH OTHER QUALIFIED HEALTHCARE PROFESSIONALS INDICATED FOR THE PATIENT'S CARE. DX & DISP Disposition: Discharge Departure Impression: Primary Impression: Nausea & vomiting Condition: Stable Scripts Ondansetron (Ondansetron Odt) 4 Mg Tab.rapdis 4 MG PO Q6HPRN PRN for nausea for 3 Days, #12 TAB 0 Refills Prov: CONCHA SPAULDING NP 10/18/24 Referrals: SUSANNE DEL ROSARIO (PCP) Time of Disposition: 15:03 I have reviewed the case, and I agree with, Diagnosis and Plan I performed this substantive portion of this visit. I have reviewed and personally made and approve the management plan that is documented in the note by myself or the KENYETTA. I acknowledge full responsibility for the patient's management plan. CONCHA SPAULDING NP Oct 18, 2024 11:28 NERY POWELL MD Oct 18, 2024 18:49
--- NOTE | 2024-10-18 14:42 | HMCIMG ---
US ABDOMINAL RUQ\E\LTD HISTORY: Elevated liver enzymes COMPARISON: None TECHNIQUE: Right upper quadrant abdominal ultrasound study was performed. FINDINGS: Liver measures 15 cm. Pancreatic head is prominent measuring 3.2 cm. The visualized portion of the pancreas is within normal limits. Liver is echogenic consistent with liver parenchymal disease. No gallstone is seen. Common duct measures 3 mm. No evidence of gallbladder wall thickening is seen. Right kidney measures 9.4 x 5 x 4.3 cm. No hydronephrosis is seen of the right kidney. IMPRESSION: 1. No gallstones or ductal dilatation is seen. Prominent pancreatic head 2. No hydronephrosis is seen.
[2024-10-18 14:50] VITALS: BP 141/98; PULSE 86; RESP 20; O2SAT 98
[2024-10-18] MEDS ORDERED: ONDA-243 PO (15:04)
== END 2024-10-18 15:44 | disposition home or self-care (01) ==
LOC: EDH 10:14
DX: R11.2 Nausea with vomiting, unspecified (principal); E66.9 Obesity, unspecified; Z88.0 Allergy status to penicillin; Z88.8 Allergy status to other drugs, medicaments and biological substances; Z91.041 Radiographic dye allergy status
CPT/HCPCS: 99284; 96374; 76705; 96361; 96375; 80053; 83690; 85025; 36415; J3490; J7030; J2405